=== PATIENT | female | born 1935 | race Two or more races ===

== ENCOUNTER → 2017-11-10 | Outpatient (CLI) | payer MEDICARE, MEDICAID ==
[~2017-11-10] MED LIST: AMLO5TAB66 PO; ASPI81TA39 PO; ATEN50TA PO; CALC250T PO; CLON.3 PO; GLIP10 PO; LEVO100 PO; LEVO500 PO; METF10004 PO; METR500 PO; OMEP20TA25 PO; SIMV20TA6 PO; ZOLP5TAB8 PO
== END | disposition home or self-care (01) ==
LOC: RADPV 09:07
PROVIDERS: ATTEND Internal Medicine
DX: I08.1 Rheumatic disorders of both mitral and tricuspid valves (principal); I10 Essential (primary) hypertension; E11.65 Type 2 diabetes mellitus with hyperglycemia
CPT/HCPCS: 93306

== ENCOUNTER 2019-01-05 20:17 | Inpatient (IN) | payer MEDICARE, MEDICAID ==
[~2019-01-05] VITALS: Ht 160 cm; Wt 73.0 kg
[~2019-01-05 20:17] MED LIST changes: +METF-446 PO; -METF10004 PO
[2019-01-05] MEDS ORDERED: LABE100T8 PO (20:49)
[2019-01-05] MEDS ORDERED: OS500 PO (20:49)
[2019-01-05] MEDS ORDERED: ATOR20TA86 PO (20:49)
[2019-01-05] MEDS ORDERED: AMIO200T44 PO (20:49)
[2019-01-05] MEDS ORDERED: SODIUM CHLORIDE 0.9% 1,000 ML IV ONE (21:15)
[2019-01-05 21:24] LABS: BASOPHILS % (AUTO) 0.3 % (0.0-2.0); EOSINOPHILS % (AUTO) 0.7 % (1.0-6.0); HEMATOCRIT 35.5 % (36-46); HEMOGLOBIN 11.5 g/dL (12.0-16.0); LYMPHOCYTES # (AUTO) 0.7 K/uL (1.0-4.8); LYMPHOCYTES % (AUTO) 9.1 % (22.0-44.0); MEAN CORPUSCULAR HEMOGLOBIN 30.4 pg (26.0-34.0); MEAN CORPUSCULAR HGB CONC 32.5 G/dL (31.0-37.0); MEAN CORPUSCULAR VOLUME 94 fL (80-100); MONOCYTES # (AUTO) 0.6 K/uL (0.1-1.0); MONOCYTES % (AUTO) 7.5 % (2.0-9.0); NEUTROPHILS # (AUTO) 6.7 K/uL (1.8-7.7); NEUTROPHILS % (AUTO) 82.4 % (40.0-70.0); PLATELET COUNT (AUTO) 221 K/uL (150-450); RED BLOOD CELL COUNT(AUTO) 3.79 MIL/uL (4.00-5.20); RED CELL DISTRIBUTION WIDTH 14.6 % (11.5-14.5)
[2019-01-05] MEDS ORDERED: HydrALAZINE HCL 20 MG/ML VIAL IVP ONE (21:30)
[2019-01-05 21:38] LABS: ANION GAP 12 mmol/L (8-16); CALCIUM, TOTAL 8.9 mg/dL (8.8-10.5); CARBON DIOXIDE 26 mmol/L (22-29); CHLORIDE 101 mmol/L (98-107); CREATININE 2.08 mg/dL (0.60-1.30); GLOMERULAR FILTR. RATE CALC 23 mL/min (>60); GLUCOSE,RANDOM 118 mg/dL (70-110); POTASSIUM 3.2 mmol/L (3.5-5.1); SODIUM SERUM 139 mmol/L (136-145); UREA NITROGEN, BLOOD 26 mg/dL (7-18)
[2019-01-05 21:39] LABS: PROTHROMBIN TIME 10.6 SEC (9.4-11.6)
[2019-01-05 21:53] LABS: ALANINE AMINOTRANSFERASE 20 U/L (12-78); ALBUMIN 4.3 g/dL (3.4-5.0); ALKALINE PHOSPHATASE 79 U/L (46-116); ASPARTATE AMINOTRANSFERASE 22 U/L (15-37); BILIRUBIN,TOTAL 0.6 mg/dL (0.1-1.0); TOTAL PROTEIN, SERUM 8.4 g/dL (6.4-8.2)
[2019-01-05] MEDS ORDERED: CloNIDine HCL 0.2 MG TABLET PO ONE (22:30)
[2019-01-05 22:38] LABS: APPEARANCE,URINE CLEAR (CLEAR); BILIRUBIN,URINE NEGATIVE (NEGATIVE); GLUCOSE, URINE (UA) 250 mg/dL (NEGATIVE); KETONES,URINE NEGATIVE (NEGATIVE); LEUKOCYTE ESTERASE ,URINE NEGATIVE (NEGATIVE); NITRATE,URINE NEGATIVE (NEGATIVE); OCCULT BLOOD,URINE NEGATIVE (NEGATIVE); PH,URINE 6.5 (5.0-8.0); PROTEIN,URINE SEE CONFIRM (NEGATIVE); UROBILINOGEN,URINE 0.2 mg/dL (<=1.0)
[2019-01-05 22:40] LABS: GLUCOSE,POINT OF CARE 100 MG/DL (70-110)
[2019-01-05 22:43] LABS: AMPHET/METH SCREEN,URINE NEGATIVE (NEGATIVE); BARBITURATE SCREEN, URINE NEGATIVE (NEGATIVE); BENZODIAZEPINES SCREEN,URINE NEGATIVE (NEGATIVE); CANNABINOID SCREEN,URINE NEGATIVE (NEGATIVE); COCAINE SCREEN,URINE NEGATIVE (NEGATIVE); METHADONE SCREEN, URINE NEGATIVE (NEGATIVE); OPIATE SCREEN,URINE NEGATIVE (NEGATIVE)
[2019-01-05 22:44] LABS: PHENCYCLIDINE SCREEN,URINE NEGATIVE (NEGATIVE)
[2019-01-05 22:53] LABS: SULFOSALICYLIC ACID,URINE 2+ (Negative)
[2019-01-05 22:54] LABS: BACTERIA,URINE None Seen /HPF (None Seen); RBC,URINE 0-2 /HPF (0-2); SQUAMOUS EPITHELIAL CELL,UR Few /LPF (None Seen); WBC,URINE 0-2 /HPF (0-5)
[2019-01-05 23:10] LABS: GLUCOSE,POINT OF CARE 86 MG/DL (70-110)
[2019-01-05] MEDS ORDERED: POTASSIUM CHLORIDE 20 MEQ ER TABLET PO ONE (23:15)
[2019-01-05 23:55] LABS: GLUCOSE,POINT OF CARE 111 MG/DL (70-110)
[2019-01-06] VITALS (9 sets, daily range): BP systolic 142–189; BP diastolic 68–95
[2019-01-06 02:05] LABS: GLUCOSE,POINT OF CARE 168 MG/DL (70-110)
[2019-01-06] MEDS: HydrALAZINE HCL 20 MG/ML VIAL IVP PRN ×2 (02:42→11:42)
[2019-01-06 05:25] LABS: GLUCOSE,POINT OF CARE 177 MG/DL (70-110)
[2019-01-06 05:25] LABS: GLUCOSE,POINT OF CARE 98 MG/DL (70-110)
[2019-01-06] MEDS ORDERED: DEXTROSE 10%-WATER 1,000 ML IV PRN (06:33)
[2019-01-06] MEDS ORDERED: ACETAMINOPHEN 325 MG TABLET PO PRN (06:45)
[2019-01-06] MEDS ORDERED: DEXTROSE 50%-WATER 25 GM/50 ML SYRINGE IVP PRN ×2 (06:45→07:00)
[2019-01-06] MEDS ORDERED: 0.9% SODIUM CHLORIDE 10 ML SYRINGE IVP PRN (06:45)
[2019-01-06] MEDS ORDERED: ZOLPIDEM TARTRATE 5 MG TABLET PO PRN (06:45)
[2019-01-06] MEDS ORDERED: ONDANSETRON HCL 4 MG/2 ML VIAL IVP PRN (06:45)
[2019-01-06] MEDS: LEVOTHYROXINE SODIUM 100 MCG TABLET PO SCH (06:53)
[2019-01-06 07:25] LABS: GLUCOSE,POINT OF CARE 79 MG/DL (70-110)
[2019-01-06 07:26] LABS: CALCIUM, TOTAL 8.2 mg/dL (8.8-10.5); CREATININE 1.86 mg/dL (0.60-1.30); POTASSIUM 3.3 mmol/L (3.5-5.1)
[2019-01-06] MEDS: DOCUSATE SODIUM 100 MG CAPSULE PO SCH ×2 (08:12→20:23)
[2019-01-06] MEDS: AMIODARONE HCL 200 MG TABLET PO SCH (08:12)
[2019-01-06] MEDS: PANTOPRAZOLE SODIUM 40 MG DR TABLET PO SCH (08:12)
[2019-01-06 08:18] LABS: MAGNESIUM 1.6 mg/dL (1.80-2.40)
[2019-01-06] MEDS ORDERED: LABETALOL HCL 100 MG TABLET PO SCH (09:00)
[2019-01-06 10:26] LABS: GLUCOSE,POINT OF CARE 106 MG/DL (70-110)
[2019-01-06] MEDS: CALCIUM OYSTER SHELL 500 MG TABLET PO SCH (10:37)
[2019-01-06] MEDS: LABETALOL HCL 200 MG TABLET PO SCH ×2 (10:37→20:23)
[2019-01-06] MEDS ORDERED: POTASSIUM CHLORIDE 20 MEQ ER TABLET PO PRN ×2 (12:30)
[2019-01-06 13:35] LABS: GLUCOSE,POINT OF CARE 88 MG/DL (70-110)
[2019-01-06] MEDS: MAGNESIUM OXIDE 400 MG TABLET PO PRN (13:36)
[2019-01-06] MEDS: ATORVASTATIN CALCIUM 20 MG TABLET PO SCH (20:23)
[2019-01-06] MEDS: INSULIN LISPRO 100 UNITS/ML SQ PRN (20:24)
[2019-01-07] VITALS (7 sets, daily range): BP systolic 130–149; BP diastolic 62–76
[2019-01-07 06:19] LABS: BASOPHILS % (AUTO) 0.8 % (0.0-2.0); EOSINOPHILS % (AUTO) 1.8 % (1.0-6.0); HEMATOCRIT 30.2 % (36-46); LYMPHOCYTES # (AUTO) 1.7 K/uL (1.0-4.8); MEAN CORPUSCULAR HEMOGLOBIN 30.9 pg (26.0-34.0); MEAN CORPUSCULAR HGB CONC 33.2 G/dL (31.0-37.0); MEAN CORPUSCULAR VOLUME 93 fL (80-100); MONOCYTES # (AUTO) 0.7 K/uL (0.1-1.0); MONOCYTES % (AUTO) 12.2 % (2.0-9.0); NEUTROPHILS # (AUTO) 3.4 K/uL (1.8-7.7); NEUTROPHILS % (AUTO) 56.2 % (40.0-70.0); PLATELET COUNT (AUTO) 200 K/uL (150-450); RED BLOOD CELL COUNT(AUTO) 3.25 MIL/uL (4.00-5.20); RED CELL DISTRIBUTION WIDTH 14.5 % (11.5-14.5)
[2019-01-07] MEDS: LEVOTHYROXINE SODIUM 100 MCG TABLET PO SCH (06:22)
[2019-01-07 06:30] LABS: CALCIUM, TOTAL 8.3 mg/dL (8.8-10.5); CREATININE 2.34 mg/dL (0.60-1.30); MAGNESIUM 1.5 mg/dL (1.80-2.40); POTASSIUM 4.4 mmol/L (3.5-5.1)
[2019-01-07] MEDS: AMIODARONE HCL 200 MG TABLET PO SCH (08:31)
[2019-01-07] MEDS: PANTOPRAZOLE SODIUM 40 MG DR TABLET PO SCH (08:31)
[2019-01-07] MEDS: CALCIUM OYSTER SHELL 500 MG TABLET PO SCH (08:31)
[2019-01-07] MEDS: LABETALOL HCL 200 MG TABLET PO SCH ×2 (08:31→20:11)
[2019-01-07] MEDS: DOCUSATE SODIUM 100 MG CAPSULE PO SCH ×2 (08:31→20:11)
[2019-01-07] MEDS ORDERED: SODIUM CHLORIDE 0.9% 500 ML IV ONE (13:00)
[2019-01-07] MEDS: ATORVASTATIN CALCIUM 20 MG TABLET PO SCH (20:11)
[2019-01-07] MEDS: MAGNESIUM OXIDE 400 MG TABLET PO PRN ×2 (20:11→23:37)
[2019-01-07] MEDS: INSULIN LISPRO 100 UNITS/ML SQ PRN (20:12)
[2019-01-08] VITALS (7 sets, daily range): BP systolic 145–179; BP diastolic 69–79
[2019-01-08] MEDS: MAGNESIUM OXIDE 400 MG TABLET PO PRN ×3 (04:41→20:25)
[2019-01-08] MEDS: LEVOTHYROXINE SODIUM 100 MCG TABLET PO SCH (06:18)
[2019-01-08] MEDS: HydrALAZINE HCL 20 MG/ML VIAL IVP PRN (06:18)
[2019-01-08] MEDS: INSULIN LISPRO 100 UNITS/ML SQ PRN (06:30)
[2019-01-08 06:46] LABS: BASOPHILS % (AUTO) 0.6 % (0.0-2.0); EOSINOPHILS % (AUTO) 3.2 % (1.0-6.0); HEMATOCRIT 29.7 % (36-46); HEMOGLOBIN 9.8 g/dL (12.0-16.0); LYMPHOCYTES # (AUTO) 1.5 K/uL (1.0-4.8); LYMPHOCYTES % (AUTO) 26.6 % (22.0-44.0); MEAN CORPUSCULAR HEMOGLOBIN 30.8 pg (26.0-34.0); MEAN CORPUSCULAR VOLUME 93 fL (80-100); MONOCYTES # (AUTO) 0.7 K/uL (0.1-1.0); MONOCYTES % (AUTO) 11.5 % (2.0-9.0); NEUTROPHILS # (AUTO) 3.3 K/uL (1.8-7.7); NEUTROPHILS % (AUTO) 58.1 % (40.0-70.0); PLATELET COUNT (AUTO) 180 K/uL (150-450); RED BLOOD CELL COUNT(AUTO) 3.18 MIL/uL (4.00-5.20); RED CELL DISTRIBUTION WIDTH 14.7 % (11.5-14.5)
[2019-01-08 06:54] LABS: CALCIUM, TOTAL 8.6 mg/dL (8.8-10.5); CREATININE 2.12 mg/dL (0.60-1.30); MAGNESIUM 1.7 mg/dL (1.80-2.40); POTASSIUM 4.4 mmol/L (3.5-5.1)
[2019-01-08] MEDS: AMIODARONE HCL 200 MG TABLET PO SCH (08:55)
[2019-01-08] MEDS: CALCIUM OYSTER SHELL 500 MG TABLET PO SCH (08:55)
[2019-01-08] MEDS: PANTOPRAZOLE SODIUM 40 MG DR TABLET PO SCH (08:55)
[2019-01-08] MEDS: DOCUSATE SODIUM 100 MG CAPSULE PO SCH ×3 (08:55→20:25)
[2019-01-08] MEDS: LABETALOL HCL 200 MG TABLET PO SCH ×3 (08:55→20:26)
[2019-01-08 11:35] LABS: CREATININE,URINE RANDOM 50.7 mg/dL (30.0-125.0)
[2019-01-08 12:47] LABS: SODIUM,URINE RANDOM 32 mmol/l (20-110)
[2019-01-08] MEDS ORDERED: SODIUM CHLORIDE 0.9% 500 ML IV ONE ×2 (12:53→13:15)
[2019-01-08] MEDS: AmLODIPine BESYLATE 5 MG TABLET PO SCH ×2 (13:03→20:25)
[2019-01-08 13:19] LABS: APPEARANCE,URINE CLEAR (CLEAR); BILIRUBIN,URINE NEGATIVE (NEGATIVE); GLUCOSE, URINE (UA) 250 mg/dL (NEGATIVE); KETONES,URINE NEGATIVE (NEGATIVE); LEUKOCYTE ESTERASE ,URINE NEGATIVE (NEGATIVE); NITRATE,URINE NEGATIVE (NEGATIVE); OCCULT BLOOD,URINE NEGATIVE (NEGATIVE); PROTEIN,URINE NEGATIVE (NEGATIVE); UROBILINOGEN,URINE 0.2 mg/dL (<=1.0)
[2019-01-08 13:25] LABS: BACTERIA,URINE None Seen /HPF (None Seen); RBC,URINE None Seen /HPF (0-2); WBC,URINE 0-2 /HPF (0-5)
[2019-01-08 13:26] LABS: SQUAMOUS EPITHELIAL CELL,UR Few /LPF (None Seen)
[2019-01-08] MEDS: CloNIDine HCL 0.1 MG TABLET PO SCH ×2 (16:38→20:25)
[2019-01-08] MEDS: ATORVASTATIN CALCIUM 20 MG TABLET PO SCH (20:25)
[2019-01-09] MEDS: LEVOTHYROXINE SODIUM 100 MCG TABLET PO SCH (05:11)
[2019-01-09] MEDS: MAGNESIUM OXIDE 400 MG TABLET PO PRN (05:11)
[2019-01-09 05:42] LABS: GLUCOMETER DEV NAME(LOC) 4E.2; GLUCOSE,POINT OF CARE 267 MG/DL (70-110)
[2019-01-09 05:42] LABS: GLUCOMETER DEV NAME(LOC) 4E.2; GLUCOSE,POINT OF CARE 57 MG/DL (70-110)
[2019-01-09 05:42] LABS: GLUCOMETER DEV NAME(LOC) 4E.2; GLUCOSE,POINT OF CARE 97 MG/DL (70-110)
[2019-01-09 05:42] LABS: GLUCOMETER DEV NAME(LOC) 4E.2; GLUCOSE,POINT OF CARE 256 MG/DL (70-110)
[2019-01-09 05:43] LABS: GLUCOMETER DEV NAME(LOC) 4E.2; GLUCOSE,POINT OF CARE 139 MG/DL (70-110)
[2019-01-09 05:43] LABS: GLUCOMETER DEV NAME(LOC) 4E.2; GLUCOSE,POINT OF CARE 226 MG/DL (70-110)
[2019-01-09 05:43] LABS: GLUCOMETER DEV NAME(LOC) 4E.2; GLUCOSE,POINT OF CARE 106 MG/DL (70-110)
[2019-01-09 05:43] LABS: GLUCOMETER DEV NAME(LOC) 4E.2; GLUCOSE,POINT OF CARE 203 MG/DL (70-110)
[2019-01-09 05:43] LABS: GLUCOMETER DEV NAME(LOC) 4E.2; GLUCOSE,POINT OF CARE 172 MG/DL (70-110)
[2019-01-09 05:43] LABS: GLUCOMETER DEV NAME(LOC) 4E.2; GLUCOSE,POINT OF CARE 146 MG/DL (70-110)
[2019-01-09 05:43] LABS: GLUCOMETER DEV NAME(LOC) 4E.2; GLUCOSE,POINT OF CARE 139 MG/DL (70-110)
[2019-01-09 06:21] LABS: GLUCOMETER DEV NAME(LOC) 4E.2; GLUCOSE,POINT OF CARE 126 MG/DL (70-110)
[2019-01-09 06:39] LABS: BASOPHILS % (AUTO) 0.6 % (0.0-2.0); HEMATOCRIT 28.5 % (36-46); HEMOGLOBIN 9.5 g/dL (12.0-16.0); LYMPHOCYTES # (AUTO) 1.5 K/uL (1.0-4.8); LYMPHOCYTES % (AUTO) 27.1 % (22.0-44.0); MEAN CORPUSCULAR HEMOGLOBIN 31.1 pg (26.0-34.0); MEAN CORPUSCULAR HGB CONC 33.4 G/dL (31.0-37.0); MEAN CORPUSCULAR VOLUME 93 fL (80-100); MONOCYTES # (AUTO) 0.5 K/uL (0.1-1.0); MONOCYTES % (AUTO) 9.5 % (2.0-9.0); NEUTROPHILS # (AUTO) 3.4 K/uL (1.8-7.7); NEUTROPHILS % (AUTO) 58.8 % (40.0-70.0); PLATELET COUNT (AUTO) 192 K/uL (150-450); RED BLOOD CELL COUNT(AUTO) 3.06 MIL/uL (4.00-5.20); RED CELL DISTRIBUTION WIDTH 14.5 % (11.5-14.5)
[2019-01-09 07:01] LABS: CALCIUM, TOTAL 8.7 mg/dL (8.8-10.5); CREATININE 1.55 mg/dL (0.60-1.30); MAGNESIUM 1.9 mg/dL (1.80-2.40); POTASSIUM 4.4 mmol/L (3.5-5.1)
[2019-01-09 07:38] VITALS: BP 140/59
[2019-01-09 09:21] VITALS: BP 160/69
[2019-01-09] MEDS: AmLODIPine BESYLATE 5 MG TABLET PO SCH (09:23)
[2019-01-09] MEDS: AMIODARONE HCL 200 MG TABLET PO SCH (09:23)
[2019-01-09] MEDS: DOCUSATE SODIUM 100 MG CAPSULE PO SCH (09:23)
[2019-01-09] MEDS: LABETALOL HCL 200 MG TABLET PO SCH (09:23)
[2019-01-09] MEDS: PANTOPRAZOLE SODIUM 40 MG DR TABLET PO SCH (09:23)
[2019-01-09] MEDS: CALCIUM OYSTER SHELL 500 MG TABLET PO SCH (09:23)
[2019-01-09] MEDS: CloNIDine HCL 0.1 MG TABLET PO SCH (09:23)
[2019-01-09] MEDS ORDERED: AMLO10TA7 PO (10:29)
[2019-01-09 11:06] VITALS: BP 163/75
[2019-01-09] MEDS ORDERED: FERROUS SULFATE 325 MG EC TABLET PO SCH (17:30)
[2019-01-10 14:38] LABS: ALBUMIN URINE (ELP) 56.1 %
== END 2019-01-09 11:35 | disposition home or self-care (01) | DRG 637 ==
LOC: EMS 20:17 → ICU 01-06 00:01 → 4E 01-06 15:15
PROVIDERS: ADMIT Internal Medicine; ATTEND Internal Medicine
DX: E11.649 Type 2 diabetes mellitus with hypoglycemia without coma (principal); G93.41 Metabolic encephalopathy; N17.9 Acute kidney failure, unspecified; I10 Essential (primary) hypertension; E78.5 Hyperlipidemia, unspecified; E11.22 Type 2 diabetes mellitus with diabetic chronic kidney disease; N18.3 Chronic kidney disease, stage 3 (moderate); I12.9 Hypertensive chronic kidney disease with stage 1 through stage 4 chronic kidney disease, or unspecified chronic kidney disease; E89.0 Postprocedural hypothyroidism; Z83.3 Family history of diabetes mellitus
CPT/HCPCS: 76770; 82570; 82784; 82948; 83735; 84132; 84155; 84156; 84165; 84166; 84300; 84443; 86334; 87081; 93005; 96374; G0378; G0480; J0360; J7030; J7040

== ENCOUNTER 2022-11-24 10:50 | Inpatient (IN) | payer MEDICARE, MEDICAID ==
[~2022-11-24] VITALS: Ht 152.4 cm; Wt 72.4 kg
[~2022-11-24 10:50] MED LIST changes: +AMIO200T68 PO; +AMLO-258 PO; -AMLO5TAB66 PO; -ASPI81TA39 PO; -ATEN50TA PO; +ATOR20TA PO; -CALC250T PO; -CLON.3 PO; +CLON0.3T PO; -GLIP10 PO; +LABE100T51 PO; -LEVO500 PO; -METF-446 PO; -METR500 PO; -OMEP20TA25 PO; +OS500 PO; -SIMV20TA6 PO; -ZOLP5TAB8 PO
[2022-11-24 11:21] LABS: EOSINOPHILS % (AUTO) 2.1 % (1.0-6.0); HEMATOCRIT 37.1 % (36-46); HEMOGLOBIN 12.2 g/dL (12.0-16.0); LYMPHOCYTES # (AUTO) 1.1 K/uL (1.0-4.8); LYMPHOCYTES % (AUTO) 16.4 % (22.0-44.0); MEAN CORPUSCULAR HEMOGLOBIN 29.5 pg (26.0-34.0); MEAN CORPUSCULAR HGB CONC 32.8 G/dL (31.0-37.0); MEAN CORPUSCULAR VOLUME 90 fL (80-100); MONOCYTES # (AUTO) 0.5 K/uL (0.1-1.0); NEUTROPHILS # (AUTO) 4.7 K/uL (1.8-7.7); NEUTROPHILS % (AUTO) 72.5 % (40.0-70.0); PLATELET COUNT (AUTO) 152 K/uL (150-450); RED BLOOD CELL COUNT(AUTO) 4.12 MIL/uL (4.00-5.20); RED CELL DISTRIBUTION WIDTH 16.4 % (11.5-14.5)
[2022-11-24 11:54] LABS: INR 1.2 (0.9-1.1); PROTHROMBIN TIME 12.5 SEC (9.4-11.6)
[2022-11-24] MEDS ORDERED: ONDANSETRON HCL 4 MG/2 ML VIAL IVP PRN (12:15)
[2022-11-24] MEDS ORDERED: ACETAMINOPHEN 325 MG TABLET PO PRN (12:15)
[2022-11-24] MEDS ORDERED: INSULIN LISPRO 100 UNITS/ML SQ PRN (12:15)
[2022-11-24] MEDS ORDERED: DEXTROSE 50%-WATER 25 GM/50 ML SYRINGE IVP PRN (12:15)
[2022-11-24] MEDS ORDERED: BISACODYL 10 MG RECTAL RECTAL SUPPOSITORY PR PRN (12:15)
[2022-11-24 12:18] LABS: COVID AG,FIA SOURCE NASOPHARYNGEAL
[2022-11-24] MEDS ORDERED: CLON1PAT13 TP (12:18)
[2022-11-24] MEDS ORDERED: GLIP5TAB11 PO (12:18)
[2022-11-24] MEDS ORDERED: MINO2.5 PO (12:18)
[2022-11-24] MEDS ORDERED: LOSA100T59 PO (12:18)
[2022-11-24] MEDS ORDERED: ESCI5TAB16 PO (12:18)
[2022-11-24] MEDS ORDERED: LEVO137T2 PO (12:18)
[2022-11-24 12:19] LABS: CALCIUM, TOTAL 8.1 mg/dL (8.8-10.5); CREATININE 1.77 mg/dL (0.60-1.30); POTASSIUM 4.5 mmol/L (3.5-5.1)
[2022-11-24] MEDS ORDERED: LABE200T83 PO (12:19)
[2022-11-24] MEDS ORDERED: EMPA10TA3 PO (12:19)
[2022-11-24 12:36] LABS: ALBUMIN 3.8 g/dL (3.4-5.0); BILIRUBIN,TOTAL 1.2 mg/dL (0.1-1.0); TOTAL PROTEIN, SERUM 7.5 g/dL (6.4-8.2)
[2022-11-24] MEDS ORDERED: CefTRIAXone 1 GM/DEXTROSE 50 ML IV ONE (12:45)
[2022-11-24] MEDS ORDERED: AZITHROMYCIN 500 MG/NS 250 ML IV ONE (12:45)
[2022-11-24 12:50] LABS: INFLUENZA TYPE A NEGATIVE FOR TYPE A (NEGATIVE); INFLUENZA TYPE B NEGATIVE FOR TYPE B (NEGATIVE)
[2022-11-24] MEDS ORDERED: AmLODIPine BESYLATE 10 MG TABLET PO ONE (13:00)
[2022-11-24 13:06] LABS: THYROID STIMULATING HORMONE 5.32 uIU/mL (0.36-3.74)
[2022-11-24] MEDS: BUMETANIDE 0.25 MG/ML 4 ML VIAL IVP SCH ×2 (13:25→20:26)
[2022-11-24] MEDS: LOSARTAN POTASSIUM 50 MG TABLET PO SCH ×2 (13:26→20:44)
[2022-11-24 15:20] LABS: APPEARANCE,URINE CLEAR (CLEAR); BILIRUBIN,URINE NEGATIVE (NEGATIVE); GLUCOSE, URINE (UA) >=1000 mg/dL (NEGATIVE); KETONES,URINE NEGATIVE (NEGATIVE); LEUKOCYTE ESTERASE ,URINE NEGATIVE (NEGATIVE); NITRATE,URINE NEGATIVE (NEGATIVE); OCCULT BLOOD,URINE NEGATIVE (NEGATIVE); PH,URINE 5.5 (5.0-8.0); PROTEIN,URINE 100-200,SEE CONFIRM mg/dL (NEGATIVE); SPECIFIC GRAVITIY, URINE 1.006 (1.003-1.030); UROBILINOGEN,URINE <=1.0 mg/dL (<=1.0)
[2022-11-24 15:35] LABS: BACTERIA,URINE Rare /HPF (None Seen); RBC,URINE 0-2 /HPF (0-2); SQUAMOUS EPITHELIAL CELL,UR Few /LPF (None Seen); SULFOSALICYLIC ACID,URINE 2+ (Negative); WBC,URINE 0-2 /HPF (0-5)
[2022-11-24 18:35] VITALS: BP 183/95; PULSE 64; RESP 22; TEMP 98.4
[2022-11-24] MEDS: OxyCODONE HCL/ACETAMINOPHEN 5-325 MG TABLET PO PRN (18:38)
[2022-11-24] MEDS: CloNIDine HCL 0.1 MG TABLET PO PRN (18:38)
[2022-11-24 19:36] VITALS: BP 161/68; PULSE 69; RESP 20; TEMP 98.3
[2022-11-24] MEDS: DOCUSATE SODIUM 100 MG CAPSULE PO SCH (20:44)
[2022-11-24] MEDS: APIXABAN 5 MG TABLET PO SCH (20:44)
[2022-11-24 23:59] VITALS: BP 170/83; PULSE 66; RESP 19; TEMP 97.8
[2022-11-25] VITALS (7 sets, daily range): BP systolic 161–190; BP diastolic 75–98; PULSE 53–67; RESP 18–20; TEMP 97.7–99
[2022-11-25] MEDS: CloNIDine HCL 0.1 MG TABLET PO PRN ×2 (02:26→15:35)
[2022-11-25 05:31] LABS: GLUCOMETER DEV NAME(LOC) 5S.1B; GLUCOSE,POINT OF CARE 121 MG/DL (70-110)
[2022-11-25] MEDS ORDERED: LOSARTAN POTASSIUM 50 MG TABLET PO ONE (05:45)
[2022-11-25] MEDS: BUMETANIDE 0.25 MG/ML 4 ML VIAL IVP SCH ×2 (07:56→20:49)
[2022-11-25] MEDS: LOSARTAN POTASSIUM 50 MG TABLET PO SCH ×2 (07:57→18:33)
[2022-11-25] MEDS: DOCUSATE SODIUM 100 MG CAPSULE PO SCH ×2 (07:57→20:50)
[2022-11-25] MEDS: FAMOTIDINE 20 MG TABLET PO SCH (07:57)
[2022-11-25] MEDS: METOPROLOL SUCCINATE 25 MG ER TABLET PO SCH (07:57)
[2022-11-25] MEDS: APIXABAN 5 MG TABLET PO SCH (07:57)
[2022-11-25] MEDS: ASPIRIN 81 MG CHEWABLE TABLET PO SCH (07:57)
[2022-11-25] MEDS: ATORVASTATIN CALCIUM 20 MG TABLET PO SCH (07:57)
[2022-11-25] MEDS: AmLODIPine BESYLATE 10 MG TABLET PO SCH (10:30)
[2022-11-25 11:27] LABS: GLUCOMETER DEV NAME(LOC) 5S.2C; GLUCOSE,POINT OF CARE 86 MG/DL (70-110)
[2022-11-25 11:27] LABS: GLUCOMETER DEV NAME(LOC) 5S.2C; GLUCOSE,POINT OF CARE 129 MG/DL (70-110)
[2022-11-25 17:52] LABS: GLUCOMETER DEV NAME(LOC) 5N.1C; GLUCOSE,POINT OF CARE 102 MG/DL (70-110)
[2022-11-25] MEDS: APIXABAN 2.5 MG TABLET PO SCH (20:50)
[2022-11-26] MEDS: CloNIDine HCL 0.1 MG TABLET PO PRN ×2 (00:25→16:43)
[2022-11-26 00:34] VITALS: BP 194/91; PULSE 61; RESP 20; TEMP 98.6
[2022-11-26 00:42] LABS: GLUCOMETER DEV NAME(LOC) 5N.2C; GLUCOSE,POINT OF CARE 130 MG/DL (70-110)
[2022-11-26 04:38] VITALS: BP 192/93; PULSE 59; RESP 20; TEMP 98.7
[2022-11-26] MEDS ORDERED: CloNIDine HCL 0.1 MG TABLET PO ONE (04:45)
[2022-11-26 06:07] LABS: BASOPHILS % (AUTO) 1.1 % (0.0-2.0); EOSINOPHILS % (AUTO) 6.4 % (1.0-6.0); HEMATOCRIT 35.1 % (36-46); HEMOGLOBIN 11.4 g/dL (12.0-16.0); LYMPHOCYTES # (AUTO) 1.3 K/uL (1.0-4.8); LYMPHOCYTES % (AUTO) 24.9 % (22.0-44.0); MEAN CORPUSCULAR HEMOGLOBIN 28.9 pg (26.0-34.0); MEAN CORPUSCULAR HGB CONC 32.4 G/dL (31.0-37.0); MEAN CORPUSCULAR VOLUME 89 fL (80-100); MONOCYTES # (AUTO) 0.6 K/uL (0.1-1.0); NEUTROPHILS # (AUTO) 2.9 K/uL (1.8-7.7); NEUTROPHILS % (AUTO) 56.6 % (40.0-70.0); PLATELET COUNT (AUTO) 151 K/uL (150-450); RED BLOOD CELL COUNT(AUTO) 3.95 MIL/uL (4.00-5.20); RED CELL DISTRIBUTION WIDTH 16.2 % (11.5-14.5)
[2022-11-26 06:26] LABS: ALBUMIN 3.4 g/dL (3.4-5.0); BILIRUBIN,TOTAL 1.1 mg/dL (0.1-1.0); CALCIUM, TOTAL 7.8 mg/dL (8.8-10.5); CREATININE 1.48 mg/dL (0.60-1.30); POTASSIUM 3.3 mmol/L (3.5-5.1); TOTAL PROTEIN, SERUM 6.9 g/dL (6.4-8.2)
[2022-11-26 08:00] VITALS: BP 190/96; PULSE 64; RESP 18; TEMP 97.6
[2022-11-26] MEDS: LOSARTAN POTASSIUM 50 MG TABLET PO SCH ×2 (08:38→21:49)
[2022-11-26] MEDS: ASPIRIN 81 MG CHEWABLE TABLET PO SCH (08:38)
[2022-11-26] MEDS: BUMETANIDE 0.25 MG/ML 4 ML VIAL IVP SCH ×2 (08:38→21:49)
[2022-11-26] MEDS: AmLODIPine BESYLATE 10 MG TABLET PO SCH (08:38)
[2022-11-26] MEDS: ATORVASTATIN CALCIUM 20 MG TABLET PO SCH (08:39)
[2022-11-26] MEDS: DOCUSATE SODIUM 100 MG CAPSULE PO SCH ×2 (08:39→21:00)
[2022-11-26] MEDS: FAMOTIDINE 20 MG TABLET PO SCH (08:39)
[2022-11-26] MEDS: APIXABAN 2.5 MG TABLET PO SCH ×2 (08:39→21:49)
[2022-11-26] MEDS: METOPROLOL SUCCINATE 25 MG ER TABLET PO SCH (08:39)
[2022-11-26] MEDS ORDERED: LOSARTAN POTASSIUM 50 MG TABLET PO SCH (09:00)
[2022-11-26] MEDS: CloNIDine HCL 0.1 MG TABLET PO SCH ×2 (11:17→21:53)
[2022-11-26 11:31] LABS: GLUCOMETER DEV NAME(LOC) 5S.2C; GLUCOSE,POINT OF CARE 112 MG/DL (70-110)
[2022-11-26 12:06] LABS: GLUCOMETER DEV NAME(LOC) 5S.2C; GLUCOSE,POINT OF CARE 130 MG/DL (70-110)
[2022-11-26 12:16] VITALS: BP 142/76; PULSE 54; RESP 18; TEMP 97.9
[2022-11-26 16:00] VITALS: BP 154/92; PULSE 62; RESP 16; TEMP 97.6
[2022-11-26 20:02] VITALS: BP 181/74; PULSE 59; RESP 19; TEMP 98.1
[2022-11-26 20:11] LABS: GLUCOMETER DEV NAME(LOC) 5N.1C; GLUCOSE,POINT OF CARE 134 MG/DL (70-110)
[2022-11-27 00:11] VITALS: BP 164/69; PULSE 52; RESP 17; TEMP 98.2
[2022-11-27 04:58] VITALS: BP 177/89; PULSE 58; RESP 19; TEMP 98.1
[2022-11-27] MEDS: CloNIDine HCL 0.1 MG TABLET PO PRN (05:19)
[2022-11-27 06:17] LABS: GLUCOMETER DEV NAME(LOC) 5S.2C; GLUCOSE,POINT OF CARE 149 MG/DL (70-110)
[2022-11-27 06:27] LABS: GLUCOMETER DEV NAME(LOC) 5S.2C; GLUCOSE,POINT OF CARE 131 MG/DL (70-110)
[2022-11-27 07:44] VITALS: BP 182/95; PULSE 64; RESP 18; TEMP 98.4
[2022-11-27] MEDS: ATORVASTATIN CALCIUM 20 MG TABLET PO SCH (08:15)
[2022-11-27] MEDS: APIXABAN 2.5 MG TABLET PO SCH ×2 (08:15→21:33)
[2022-11-27] MEDS: LOSARTAN POTASSIUM 50 MG TABLET PO SCH ×2 (08:15→21:33)
[2022-11-27] MEDS: ASPIRIN 81 MG CHEWABLE TABLET PO SCH (08:15)
[2022-11-27] MEDS: FAMOTIDINE 20 MG TABLET PO SCH (08:15)
[2022-11-27] MEDS: DOCUSATE SODIUM 100 MG CAPSULE PO SCH ×2 (08:15→21:00)
[2022-11-27] MEDS: METOPROLOL SUCCINATE 25 MG ER TABLET PO SCH (08:16)
[2022-11-27] MEDS: BUMETANIDE 0.25 MG/ML 4 ML VIAL IVP SCH ×2 (08:16→21:34)
[2022-11-27] MEDS: CloNIDine HCL 0.1 MG TABLET PO SCH ×2 (08:16→21:33)
[2022-11-27] MEDS: AmLODIPine BESYLATE 10 MG TABLET PO SCH (08:16)
[2022-11-27 11:10] VITALS: BP 161/77; PULSE 60; RESP 18; TEMP 98.2
[2022-11-27] MEDS ORDERED: AMLO-258 PO (12:53)
[2022-11-27] MEDS: HydrALAZINE HCL 50 MG TABLET PO SCH ×2 (12:53→23:33)
[2022-11-27 15:54] VITALS: BP 153/79; PULSE 60; RESP 18; TEMP 98.3
[2022-11-27 17:07] LABS: GLUCOMETER DEV NAME(LOC) 5S.1B; GLUCOSE,POINT OF CARE 156 MG/DL (70-110)
[2022-11-27 20:01] LABS: GLUCOMETER DEV NAME(LOC) 5N.1C; GLUCOSE,POINT OF CARE 95 MG/DL (70-110)
[2022-11-27 20:08] VITALS: BP 150/74; PULSE 51; RESP 19; TEMP 98
[2022-11-27 23:56] LABS: GLUCOMETER DEV NAME(LOC) 5S.2C; GLUCOSE,POINT OF CARE 147 MG/DL (70-110)
[2022-11-28 00:14] VITALS: BP 144/79; PULSE 56; RESP 19; TEMP 98.1
[2022-11-28 05:07] VITALS: BP 161/64; PULSE 58; RESP 18; TEMP 97.8
[2022-11-28 06:47] LABS: GLUCOMETER DEV NAME(LOC) 5S.2C; GLUCOSE,POINT OF CARE 135 MG/DL (70-110)
[2022-11-28 07:01] LABS: BASOPHILS % (AUTO) 0.9 % (0.0-2.0); EOSINOPHILS % (AUTO) 6.9 % (1.0-6.0); HEMATOCRIT 39.3 % (36-46); HEMOGLOBIN 12.8 g/dL (12.0-16.0); LYMPHOCYTES # (AUTO) 1.5 K/uL (1.0-4.8); LYMPHOCYTES % (AUTO) 25.9 % (22.0-44.0); MEAN CORPUSCULAR HEMOGLOBIN 29.1 pg (26.0-34.0); MEAN CORPUSCULAR HGB CONC 32.7 G/dL (31.0-37.0); MEAN CORPUSCULAR VOLUME 89 fL (80-100); MONOCYTES # (AUTO) 0.7 K/uL (0.1-1.0); MONOCYTES % (AUTO) 11.4 % (2.0-9.0); NEUTROPHILS # (AUTO) 3.1 K/uL (1.8-7.7); NEUTROPHILS % (AUTO) 54.9 % (40.0-70.0); PLATELET COUNT (AUTO) 174 K/uL (150-450); RED BLOOD CELL COUNT(AUTO) 4.41 MIL/uL (4.00-5.20); RED CELL DISTRIBUTION WIDTH 16.2 % (11.5-14.5)
[2022-11-28 07:32] LABS: ALBUMIN 3.4 g/dL (3.4-5.0); BILIRUBIN,TOTAL 1.1 mg/dL (0.1-1.0); CALCIUM, TOTAL 8.3 mg/dL (8.8-10.5); CREATININE 1.34 mg/dL (0.60-1.30); TOTAL PROTEIN, SERUM 7.1 g/dL (6.4-8.2)
[2022-11-28 07:46] VITALS: BP 157/77; PULSE 60; RESP 18; TEMP 97.7
[2022-11-28] MEDS: LOSARTAN POTASSIUM 50 MG TABLET PO SCH (08:12)
[2022-11-28] MEDS: OxyCODONE HCL/ACETAMINOPHEN 5-325 MG TABLET PO PRN ×3 (08:12→16:29)
[2022-11-28] MEDS: HydrALAZINE HCL 50 MG TABLET PO SCH (08:12)
[2022-11-28] MEDS: BUMETANIDE 0.25 MG/ML 4 ML VIAL IVP SCH (08:12)
[2022-11-28] MEDS: APIXABAN 2.5 MG TABLET PO SCH (08:12)
[2022-11-28] MEDS: AmLODIPine BESYLATE 10 MG TABLET PO SCH (08:13)
[2022-11-28] MEDS: CloNIDine HCL 0.1 MG TABLET PO SCH (08:13)
[2022-11-28] MEDS: METOPROLOL SUCCINATE 25 MG ER TABLET PO SCH (08:13)
[2022-11-28] MEDS: ASPIRIN 81 MG CHEWABLE TABLET PO SCH (08:13)
[2022-11-28] MEDS: ATORVASTATIN CALCIUM 20 MG TABLET PO SCH (08:13)
[2022-11-28] MEDS: FAMOTIDINE 20 MG TABLET PO SCH (08:13)
[2022-11-28] MEDS: DOCUSATE SODIUM 100 MG CAPSULE PO SCH (08:13)
[2022-11-28 11:08] VITALS: BP 141/79; PULSE 51; RESP 18; TEMP 98.3
[2022-11-28] MEDS ORDERED: POTASSIUM CHLORIDE 20 MEQ ER TABLET PO ONE (12:15)
[2022-11-28 15:20] VITALS: BP 152/68; PULSE 58; RESP 17; TEMP 97.8
[2022-11-28] MEDS ORDERED: HydrALAZINE HCL 50 MG TABLET PO SCH (16:00)
[2022-11-28 17:48] LABS: GLUCOMETER DEV NAME(LOC) 5N.2C; GLUCOSE,POINT OF CARE 124 MG/DL (70-110)
== END 2022-11-28 17:00 | disposition home or self-care (01) | DRG 291 ==
LOC: EMS 10:52 → 5S 16:24
PROVIDERS: ADMIT Internal Medicine; ATTEND Internal Medicine
DX: I13.0 Hypertensive heart and chronic kidney disease with heart failure and stage 1 through stage 4 chronic kidney disease, or unspecified chronic kidney disease (principal); I50.23 Acute on chronic systolic (congestive) heart failure; I48.20 Chronic atrial fibrillation, unspecified; N18.4 Chronic kidney disease, stage 4 (severe); E11.22 Type 2 diabetes mellitus with diabetic chronic kidney disease; D63.8 Anemia in other chronic diseases classified elsewhere; E78.5 Hyperlipidemia, unspecified; E66.9 Obesity, unspecified; I07.1 Rheumatic tricuspid insufficiency; I25.10 Atherosclerotic heart disease of native coronary artery without angina pectoris; Z20.822 Contact with and (suspected) exposure to COVID-19; E89.0 Postprocedural hypothyroidism; Z79.4 Long term (current) use of insulin; Z79.84 Long term (current) use of oral hypoglycemic drugs; Z79.899 Other long term (current) drug therapy; Z68.31 Body mass index [BMI] 31.0-31.9, adult
CPT/HCPCS: 71045; 80053; 81001; 81002; 82550; 82962; 83880; 84443; 84484; 85025; 85610; 85730; 87804; 93005; 93306; 97163; 99285; G0378; J0456; J0696; J3490; 36415-L1; 36415-TC

== ENCOUNTER 2023-04-12 07:13 | Emergency (ER) | payer MEDICARE, MEDICAID ==
[~2023-04-12] VITALS: Ht 157.5 cm; Wt 68.2 kg
[~2023-04-12 07:13] MED LIST changes: -AMIO200T68 PO; -CLON0.3T PO; +CLON1PAT13 TP; +EMPA10TA3 PO; +ESCI5TAB16 PO; +GLIP5TAB15 PO; -LABE100T51 PO; +LABE200T83 PO; -LEVO100 PO; +LEVO137T2 PO; +LOSA100T59 PO; +MINO2.5 PO
[2023-04-12 07:24] VITALS: BP 167/97; PULSE 114; RESP 18; TEMP 98.3
[2023-04-12] MEDS ORDERED: FLUORESCEIN SODIUM 1 MG STRIP OD ONE (08:30)
== END 2023-04-12 09:09 | disposition home or self-care (01) ==
LOC: EMS 07:15
DX: H40.9 Unspecified glaucoma (principal); E11.65 Type 2 diabetes mellitus with hyperglycemia; R51.9 Headache, unspecified; I10 Essential (primary) hypertension; E05.90 Thyrotoxicosis, unspecified without thyrotoxic crisis or storm; Z98.890 Other specified postprocedural states
CPT/HCPCS: 82962; 99283

== ENCOUNTER 2024-01-19 20:16 | Inpatient (IN) | payer MEDICARE, MEDICAID ==
[~2024-01-19] VITALS: Ht 160 cm; Wt 67.2 kg
[~2024-01-19 20:16] MED LIST changes: +APIX2.5T PO; -ATOR20TA PO; +ATOR20TA65 PO; +CARV3 PO; -CLON1PAT13 TP; +FURO20 PO; -GLIP5TAB15 PO; +HYDR50TA37 PO; -LABE200T83 PO; +LOSA-382 PO; -LOSA100T59 PO
[2024-01-19 21:15] LABS: BASOPHILS % (AUTO) 0.2 % (0.0-2.0); EOSINOPHILS % (AUTO) 0.1 % (1.0-6.0); HEMOGLOBIN 12.2 g/dL (12.0-16.0); LYMPHOCYTES # (AUTO) 0.9 K/uL (1.0-4.8); MEAN CORPUSCULAR HEMOGLOBIN 30.9 pg (26.0-34.0); MEAN CORPUSCULAR HGB CONC 32.9 G/dL (31.0-37.0); MEAN CORPUSCULAR VOLUME 94 fL (80-100); MONOCYTES # (AUTO) 0.5 K/uL (0.1-1.0); MONOCYTES % (AUTO) 4.8 % (2.0-9.0); NEUTROPHILS # (AUTO) 9.7 K/uL (1.8-7.7); PLATELET COUNT (AUTO) 190 K/uL (150-450); RED BLOOD CELL COUNT(AUTO) 3.94 MIL/uL (4.00-5.20); RED CELL DISTRIBUTION WIDTH 14.3 % (11.5-14.5); WHITE BLOOD COUNT (AUTO) 11.2 K/uL (4.5-11.0)
[2024-01-19 21:18] LABS: NEUTROPHILS % (AUTO) 86.9 % (40.0-70.0)
[2024-01-19 21:28] LABS: CALCIUM, TOTAL 8.1 mg/dL (8.8-10.5); CREATININE 2.1 mg/dL (0.60-1.30); POTASSIUM 3.6 mmol/L (3.5-5.1)
[2024-01-19 21:32] LABS: PROTHROMBIN TIME 10.3 SEC (9.4-11.6)
[2024-01-19 21:34] LABS: ALBUMIN 3.4 g/dL (3.4-5.0); BILIRUBIN,TOTAL 0.4 mg/dL (0.1-1.0); TOTAL PROTEIN, SERUM 7.6 g/dL (6.4-8.2)
[2024-01-19 21:37] LABS: TROPONIN I-HIGH SENSITIVITY 497 ng/L (<51)
[2024-01-19] MEDS: HydrALAZINE HCL 20 MG/ML VIAL IVP ONE (21:43)
[2024-01-19] MEDS: CARVEDILOL 3.125 MG TABLET PO ONE (22:12)
[2024-01-19] MEDS ORDERED: ACETAMINOPHEN 325 MG TABLET PO PRN (22:45)
[2024-01-19] MEDS ORDERED: MORPHINE SULFATE 2 MG/ML SYRINGE IVP PRN (22:45)
[2024-01-19] MEDS ORDERED: ONDANSETRON HCL 4 MG/2 ML VIAL IVP PRN (22:45)
[2024-01-19] MEDS ORDERED: BISACODYL 10 MG RECTAL RECTAL SUPPOSITORY PR PRN (22:45)
[2024-01-19] MEDS ORDERED: MAGNESIUM HYDROXIDE SUSPENSION 30 ML UDCUP PO PRN (22:45)
[2024-01-19] MEDS ORDERED: HYDROCODONE/ACETAMINOPHEN 5-325 MG TABLET PO PRN (22:45)
[2024-01-19] MEDS ORDERED: ZOLPIDEM TARTRATE 5 MG TABLET PO PRN (22:45)
[2024-01-19 23:33] LABS: LACTIC ACID 1.3 mmol/L (0.4-2.0)
[2024-01-19] MEDS: FUROSEMIDE 20 MG/2 ML VIAL IVP SCH (23:40)
[2024-01-19 23:43] LABS: TROPONIN I-HIGH SENSITIVITY 662 ng/L (<51)
[2024-01-20] MEDS: MINOXIDIL 2.5 MG TABLET PO ONE (01:30)
[2024-01-20] MEDS: FUROSEMIDE 20 MG TABLET PO ONE (01:30)
[2024-01-20 05:35] LABS: CALCIUM, TOTAL 8.1 mg/dL (8.8-10.5); CREATININE 2.08 mg/dL (0.60-1.30); POTASSIUM 3.4 mmol/L (3.5-5.1)
[2024-01-20 05:37] LABS: BASOPHILS % (AUTO) 0.3 % (0.0-2.0); EOSINOPHILS % (AUTO) 0.9 % (1.0-6.0); HEMATOCRIT 34.4 % (36-46); HEMOGLOBIN 11.2 g/dL (12.0-16.0); LYMPHOCYTES # (AUTO) 1.3 K/uL (1.0-4.8); LYMPHOCYTES % (AUTO) 14.5 % (22.0-44.0); MEAN CORPUSCULAR HEMOGLOBIN 30.6 pg (26.0-34.0); MEAN CORPUSCULAR HGB CONC 32.7 G/dL (31.0-37.0); MEAN CORPUSCULAR VOLUME 94 fL (80-100); MONOCYTES # (AUTO) 0.7 K/uL (0.1-1.0); MONOCYTES % (AUTO) 8.1 % (2.0-9.0); NEUTROPHILS # (AUTO) 6.6 K/uL (1.8-7.7); NEUTROPHILS % (AUTO) 76.2 % (40.0-70.0); PLATELET COUNT (AUTO) 176 K/uL (150-450); RED BLOOD CELL COUNT(AUTO) 3.68 MIL/uL (4.00-5.20); RED CELL DISTRIBUTION WIDTH 14.7 % (11.5-14.5); WHITE BLOOD COUNT (AUTO) 8.7 K/uL (4.5-11.0)
[2024-01-20 05:56] LABS: TROPONIN I-HIGH SENSITIVITY 1021 ng/L (<51)
[2024-01-20] MEDS ORDERED: HEPARIN SODIUM,PORCINE 5,000 UNITS/ML VIAL IVP PRN ×2 (06:15)
[2024-01-20] MEDS ORDERED: HEPARIN SODIUM,PORCINE 5,000 UNITS/ML VIAL IVP ONE (06:15)
[2024-01-20] MEDS: HEPARIN SODIUM,PORCINE 5,000 UNITS/ML VIAL IVP ONE (06:43)
[2024-01-20] MEDS: HEPARIN SODIUM 25000 UNITS/D5W 250 ML IV PRN (06:54)
[2024-01-20] MEDS: LEVOTHYROXINE SODIUM 137 MCG TABLET PO SCH (07:00)
[2024-01-20 08:36] VITALS: BP 177/70; PULSE 55; RESP 18; TEMP 97.8; O2SAT 96
[2024-01-20] MEDS: LOSARTAN POTASSIUM 50 MG TABLET PO SCH (08:51)
[2024-01-20] MEDS: AmLODIPine BESYLATE 10 MG TABLET PO SCH (08:51)
[2024-01-20] MEDS: CARVEDILOL 3.125 MG TABLET PO SCH (08:51)
[2024-01-20] MEDS: PANTOPRAZOLE SODIUM 40 MG DR TABLET PO SCH (08:51)
[2024-01-20] MEDS: ASPIRIN 81 MG DR TABLET PO SCH (08:51)
[2024-01-20] MEDS: HydrALAZINE HCL 50 MG TABLET PO SCH (08:55)
[2024-01-20] MEDS: DOCUSATE SODIUM 100 MG CAPSULE PO SCH (08:56)
[2024-01-20] MEDS: MINOXIDIL 2.5 MG TABLET PO SCH (08:56)
[2024-01-20] MEDS ORDERED: APIXABAN 2.5 MG TABLET PO SCH (09:00)
[2024-01-20 11:30] VITALS: BP 108/49; PULSE 58; RESP 18; TEMP 98; O2SAT 95
[2024-01-20 16:38] VITALS: BP 122/55; PULSE 72; RESP 18; TEMP 98.1; O2SAT 96
[2024-01-20 20:06] VITALS: BP 117/67; PULSE 79; RESP 18; TEMP 98.2; O2SAT 97
[2024-01-20] MEDS: ATORVASTATIN CALCIUM 20 MG TABLET PO SCH (21:28)
[2024-01-21] VITALS (8 sets, daily range): BP systolic 100–142; BP diastolic 43–70; PULSE 63–84; RESP 16–18; TEMP 98–99.7; O2SAT 97–98
[2024-01-21 05:24] LABS: APPEARANCE,URINE CLEAR (CLEAR); BILIRUBIN,URINE NEGATIVE (NEGATIVE); COLOR,URINE LIGHT YELLOW (YELLOW); GLUCOSE, URINE (UA) 300-500 mg/dL (NEGATIVE); KETONES,URINE NEGATIVE (NEGATIVE); LEUKOCYTE ESTERASE ,URINE MODERATE (NEGATIVE); NITRATE,URINE NEGATIVE (NEGATIVE); OCCULT BLOOD,URINE NEGATIVE (NEGATIVE); PH,URINE 5.5 (5.0-8.0); PROTEIN,URINE 100-200,SEE CONFIRM mg/dL (NEGATIVE); SPECIFIC GRAVITIY, URINE 1.009 (1.003-1.030); UROBILINOGEN,URINE <=1.0 mg/dL (<=1.0)
[2024-01-21 05:31] LABS: BACTERIA,URINE None Seen /HPF (None Seen); RBC,URINE None Seen /HPF (0-2); SQUAMOUS EPITHELIAL CELL,UR Few /LPF (None Seen); SULFOSALICYLIC ACID,URINE 2+ (Negative)
[2024-01-21 06:58] LABS: BASOPHILS % (AUTO) 0.6 % (0.0-2.0); EOSINOPHILS % (AUTO) 0.9 % (1.0-6.0); HEMATOCRIT 31.9 % (36-46); HEMOGLOBIN 10.6 g/dL (12.0-16.0); LYMPHOCYTES # (AUTO) 1.6 K/uL (1.0-4.8); LYMPHOCYTES % (AUTO) 22.2 % (22.0-44.0); MEAN CORPUSCULAR HEMOGLOBIN 31.1 pg (26.0-34.0); MEAN CORPUSCULAR HGB CONC 33.3 G/dL (31.0-37.0); MEAN CORPUSCULAR VOLUME 93 fL (80-100); MONOCYTES # (AUTO) 0.8 K/uL (0.1-1.0); MONOCYTES % (AUTO) 10.3 % (2.0-9.0); NEUTROPHILS # (AUTO) 4.8 K/uL (1.8-7.7); PLATELET COUNT (AUTO) 161 K/uL (150-450); RED BLOOD CELL COUNT(AUTO) 3.42 MIL/uL (4.00-5.20); RED CELL DISTRIBUTION WIDTH 14.7 % (11.5-14.5); WHITE BLOOD COUNT (AUTO) 7.3 K/uL (4.5-11.0)
[2024-01-21 07:08] LABS: CALCIUM, TOTAL 7.7 mg/dL (8.8-10.5); CREATININE 2.6 mg/dL (0.60-1.30); POTASSIUM 3.4 mmol/L (3.5-5.1)
[2024-01-21 08:26] LABS: TROPONIN I-HIGH SENSITIVITY 348 ng/L (<51)
[2024-01-21] MEDS: APIXABAN 2.5 MG TABLET PO SCH (09:07)
[2024-01-21 12:03] LABS: % IRON SATURATION 21.9 % (22-44)
[2024-01-21] MEDS: SODIUM CHLORIDE 0.9% 250 ML IV ONE (15:34)
[2024-01-21] MEDS: HydrALAZINE HCL 25 MG TABLET PO SCH (16:00)
[2024-01-22 05:40] VITALS: BP 130/57; PULSE 75; RESP 17; TEMP 98.6; O2SAT 99
[2024-01-22 06:51] LABS: BASOPHILS % (AUTO) 0.6 % (0.0-2.0); EOSINOPHILS % (AUTO) 1.6 % (1.0-6.0); HEMATOCRIT 31.6 % (36-46); HEMOGLOBIN 10.5 g/dL (12.0-16.0); LYMPHOCYTES # (AUTO) 1.5 K/uL (1.0-4.8); LYMPHOCYTES % (AUTO) 20.6 % (22.0-44.0); MEAN CORPUSCULAR HEMOGLOBIN 31.3 pg (26.0-34.0); MEAN CORPUSCULAR HGB CONC 33.4 G/dL (31.0-37.0); MEAN CORPUSCULAR VOLUME 94 fL (80-100); MONOCYTES # (AUTO) 0.7 K/uL (0.1-1.0); NEUTROPHILS # (AUTO) 4.7 K/uL (1.8-7.7); NEUTROPHILS % (AUTO) 67.2 % (40.0-70.0); PLATELET COUNT (AUTO) 166 K/uL (150-450); RED BLOOD CELL COUNT(AUTO) 3.37 MIL/uL (4.00-5.20); RED CELL DISTRIBUTION WIDTH 14.5 % (11.5-14.5); WHITE BLOOD COUNT (AUTO) 7.1 K/uL (4.5-11.0)
[2024-01-22 06:57] LABS: CREATININE 2.58 mg/dL (0.60-1.30); MAGNESIUM 2.6 mg/dL (1.80-2.40); POTASSIUM 3.5 mmol/L (3.5-5.1)
[2024-01-22 08:56] VITALS: BP 120/48; PULSE 69; RESP 17; TEMP 97.8; O2SAT 97
[2024-01-22 13:03] VITALS: BP 131/56; PULSE 63; RESP 17; TEMP 98; O2SAT 98
[2024-01-22] MEDS ORDERED: HYDR25TA84 PO (13:43)
[2024-01-22] MEDS ORDERED: LOSA-381 PO (13:46)
[2024-01-22] MEDS ORDERED: LOSA-382 PO (13:47)
[2024-01-22 16:25] VITALS: BP 127/54; PULSE 64; RESP 18; TEMP 98.1; O2SAT 98
[2024-01-22 20:15] VITALS: BP 133/61; PULSE 62; RESP 18; TEMP 97.8; O2SAT 97
[2024-01-23] VITALS (8 sets, daily range): BP systolic 107–137; BP diastolic 52–64; PULSE 65–77; RESP 16–18; TEMP 97.9–98.8; O2SAT 96–100
[2024-01-23] MEDS: LOSARTAN POTASSIUM 50 MG TABLET PO SCH (08:18)
[2024-01-24 05:27] VITALS: BP 118/51; PULSE 72; RESP 18; TEMP 98.3; O2SAT 96
[2024-01-24 09:13] VITALS: BP 122/63; PULSE 74; RESP 19; TEMP 98; O2SAT 97
[2024-01-24 11:34] VITALS: BP 127/59; PULSE 69; RESP 18; TEMP 98.1; O2SAT 100
== END 2024-01-24 15:25 | disposition home health service (06) | DRG 280 ==
LOC: EMS 20:16 → EDH 22:49 → 5S 01-20 08:00
PROVIDERS: ADMIT Internal Medicine; ATTEND Internal Medicine
DX: I13.0 Hypertensive heart and chronic kidney disease with heart failure and stage 1 through stage 4 chronic kidney disease, or unspecified chronic kidney disease (principal); I50.43 Acute on chronic combined systolic (congestive) and diastolic (congestive) heart failure; I21.A1 Myocardial infarction type 2; N17.0 Acute kidney failure with tubular necrosis; I16.1 Hypertensive emergency; N18.4 Chronic kidney disease, stage 4 (severe); G90.8 Other disorders of autonomic nervous system; I48.0 Paroxysmal atrial fibrillation; E87.6 Hypokalemia; D63.1 Anemia in chronic kidney disease; E11.22 Type 2 diabetes mellitus with diabetic chronic kidney disease; I70.1 Atherosclerosis of renal artery; I07.1 Rheumatic tricuspid insufficiency; F41.9 Anxiety disorder, unspecified; E78.5 Hyperlipidemia, unspecified; E89.0 Postprocedural hypothyroidism; Z91.199 Patient's noncompliance with other medical treatment and regimen due to unspecified reason; Z79.899 Other long term (current) drug therapy
CPT/HCPCS: 70450; 71045; 72125; 73502; 76770; 80048; 80053; 81001; 81002; 82271; 82550; 83540; 83550; 83605; 83735; 83880; 84484; 85025; 85045; 85610; 85730; 93005; 93306; 97163; 97165; 97530; 97535; 99285; G0378; J0360; J1644; J1940; J7050; 36415-L1; 36415-TC

== ENCOUNTER 2024-02-01 11:28 | Inpatient (IN) | payer MEDICARE, MEDICAID ==
[~2024-02-01] VITALS: Ht 160 cm; Wt 68.0 kg
[~2024-02-01 11:28] MED LIST changes: +HYDR25TA84 PO; -HYDR50TA37 PO; -MINO2.5 PO
[2024-02-01] MEDS ORDERED: ACET250T31 PO (11:48)
[2024-02-01 11:59] LABS: BASOPHILS % (AUTO) 0.6 % (0.0-2.0); EOSINOPHILS % (AUTO) 1.9 % (1.0-6.0); HEMATOCRIT 34.8 % (36-46); HEMOGLOBIN 11.3 g/dL (12.0-16.0); LYMPHOCYTES # (AUTO) 1.4 K/uL (1.0-4.8); LYMPHOCYTES % (AUTO) 19.6 % (22.0-44.0); MEAN CORPUSCULAR HEMOGLOBIN 31.2 pg (26.0-34.0); MEAN CORPUSCULAR HGB CONC 32.5 G/dL (31.0-37.0); MEAN CORPUSCULAR VOLUME 96 fL (80-100); MONOCYTES # (AUTO) 0.5 K/uL (0.1-1.0); MONOCYTES % (AUTO) 7.6 % (2.0-9.0); NEUTROPHILS # (AUTO) 4.9 K/uL (1.8-7.7); NEUTROPHILS % (AUTO) 70.3 % (40.0-70.0); PLATELET COUNT (AUTO) 287 K/uL (150-450); RED BLOOD CELL COUNT(AUTO) 3.62 MIL/uL (4.00-5.20); RED CELL DISTRIBUTION WIDTH 15.7 % (11.5-14.5)
[2024-02-01 12:09] LABS: CALCIUM, TOTAL 8.5 mg/dL (8.8-10.5); CREATININE 2.7 mg/dL (0.60-1.30); POTASSIUM 3.7 mmol/L (3.5-5.1)
[2024-02-01 12:12] LABS: PROTHROMBIN TIME 10.2 SEC (9.4-11.6)
[2024-02-01 12:15] LABS: ALBUMIN 3.7 g/dL (3.4-5.0); BILIRUBIN,TOTAL 0.7 mg/dL (0.1-1.0); TOTAL PROTEIN, SERUM 7.6 g/dL (6.4-8.2)
[2024-02-01 12:24] LABS: TROPONIN I-HIGH SENSITIVITY 114 ng/L (<51)
[2024-02-01] MEDS ORDERED: HYDROCODONE/ACETAMINOPHEN 5-325 MG TABLET PO PRN (14:30)
[2024-02-01] MEDS ORDERED: MAGNESIUM HYDROXIDE SUSPENSION 30 ML UDCUP PO PRN (14:30)
[2024-02-01] MEDS ORDERED: ONDANSETRON HCL 4 MG/2 ML VIAL IVP PRN (14:30)
[2024-02-01] MEDS ORDERED: ACETAMINOPHEN 325 MG TABLET PO PRN (14:30)
[2024-02-01] MEDS ORDERED: BISACODYL 10 MG RECTAL RECTAL SUPPOSITORY PR PRN (14:30)
[2024-02-01] MEDS ORDERED: ZOLPIDEM TARTRATE 5 MG TABLET PO PRN (14:30)
[2024-02-01] MEDS ORDERED: CLON0.1T2 PO (14:35)
[2024-02-01] MEDS ORDERED: ESCI-8 PO (14:35)
[2024-02-01] MEDS ORDERED: NETA2.5D3 OU (14:35)
[2024-02-01] MEDS ORDERED: GLIP5TAB15 PO (14:35)
[2024-02-01] MEDS ORDERED: LEVO125T95 PO (14:35)
[2024-02-01] MEDS ORDERED: HYDR50TA36 PO (14:35)
[2024-02-01] MEDS: FUROSEMIDE 20 MG TABLET PO SCH (14:45)
[2024-02-01] MEDS: AmLODIPine BESYLATE 10 MG TABLET PO SCH (14:46)
[2024-02-01 16:23] VITALS: BP 170/83; PULSE 62; RESP 19; TEMP 98; O2SAT 100
[2024-02-01] MEDS: HYDROCODONE/ACETAMINOPHEN 5-325 MG TABLET PO PRN (16:38)
[2024-02-01] MEDS: HydrALAZINE HCL 20 MG/ML VIAL IVP PRN (16:39)
[2024-02-01 17:01] VITALS: BP 148/72; PULSE 65
[2024-02-01] MEDS: MORPHINE SULFATE 2 MG/ML SYRINGE IVP PRN (17:13)
[2024-02-01 20:00] VITALS: BP 143/69; PULSE 63; RESP 19; TEMP 98.1; O2SAT 97
[2024-02-01] MEDS: CARVEDILOL 3.125 MG TABLET PO SCH (21:02)
[2024-02-01] MEDS: APIXABAN 2.5 MG TABLET PO SCH (21:02)
[2024-02-01] MEDS: DOCUSATE SODIUM 100 MG CAPSULE PO SCH (21:02)
[2024-02-02] VITALS (7 sets, daily range): BP systolic 141–168; BP diastolic 58–89; PULSE 60–69; RESP 16–19; TEMP 97.9–98.3; O2SAT 98–100
[2024-02-02 06:17] LABS: BASOPHILS % (AUTO) 1.1 % (0.0-2.0); EOSINOPHILS % (AUTO) 3.3 % (1.0-6.0); HEMATOCRIT 31.2 % (36-46); HEMOGLOBIN 10.1 g/dL (12.0-16.0); LYMPHOCYTES # (AUTO) 1.4 K/uL (1.0-4.8); LYMPHOCYTES % (AUTO) 25.3 % (22.0-44.0); MEAN CORPUSCULAR HEMOGLOBIN 31.5 pg (26.0-34.0); MEAN CORPUSCULAR HGB CONC 32.3 G/dL (31.0-37.0); MEAN CORPUSCULAR VOLUME 98 fL (80-100); MONOCYTES # (AUTO) 0.6 K/uL (0.1-1.0); MONOCYTES % (AUTO) 10.4 % (2.0-9.0); NEUTROPHILS # (AUTO) 3.3 K/uL (1.8-7.7); NEUTROPHILS % (AUTO) 59.9 % (40.0-70.0); PLATELET COUNT (AUTO) 254 K/uL (150-450); RED BLOOD CELL COUNT(AUTO) 3.19 MIL/uL (4.00-5.20); RED CELL DISTRIBUTION WIDTH 15.5 % (11.5-14.5); WHITE BLOOD COUNT (AUTO) 5.5 K/uL (4.5-11.0)
[2024-02-02 06:27] LABS: CREATININE 2.29 mg/dL (0.60-1.30); POTASSIUM 3.4 mmol/L (3.5-5.1)
[2024-02-02 06:42] LABS: TROPONIN I-HIGH SENSITIVITY 101 ng/L (<51)
[2024-02-02] MEDS: LOSARTAN POTASSIUM 50 MG TABLET PO SCH (08:23)
[2024-02-02] MEDS: PANTOPRAZOLE SODIUM 40 MG DR TABLET PO SCH (08:23)
[2024-02-02] MEDS: ISOSORBIDE MONONITRATE 60 MG ER TABLET PO SCH (16:49)
[2024-02-02] MEDS: HydrALAZINE HCL 50 MG TABLET PO SCH (16:49)
[2024-02-03 06:21] VITALS: BP 139/69; PULSE 68; RESP 19; TEMP 98; O2SAT 98
[2024-02-03 06:49] LABS: CALCIUM, TOTAL 8.1 mg/dL (8.8-10.5); CREATININE 2.2 mg/dL (0.60-1.30); POTASSIUM 3.4 mmol/L (3.5-5.1)
[2024-02-03 07:40] VITALS: BP 149/71; PULSE 67; RESP 19; TEMP 98.2; O2SAT 99
[2024-02-03] MEDS: HydrALAZINE HCL 50 MG TABLET PO SCH (08:54)
[2024-02-03 09:00] LABS: FREE T4 (FREE THYROXINE) 0.5 ng/dL (0.76-1.46); THYROID STIMULATING HORMONE 18.06 uIU/mL (0.36-3.74)
[2024-02-03 12:12] VITALS: BP 135/68; PULSE 70; RESP 17; TEMP 98.2; O2SAT 98
[2024-02-03 15:29] VITALS: BP 129/70; PULSE 70; RESP 16; TEMP 98.2; O2SAT 99
[2024-02-03 20:10] VITALS: BP 134/63; PULSE 66; RESP 18; TEMP 98.3; O2SAT 98
[2024-02-04 00:15] VITALS: BP 164/81; PULSE 66; RESP 18; TEMP 97.9; O2SAT 97
[2024-02-04 05:02] VITALS: BP 154/63; PULSE 72; RESP 18; TEMP 98.2; O2SAT 97
[2024-02-04 07:36] LABS: BASOPHILS % (AUTO) 0.4 % (0.0-2.0); EOSINOPHILS % (AUTO) 2.6 % (1.0-6.0); HEMATOCRIT 31.2 % (36-46); HEMOGLOBIN 10.1 g/dL (12.0-16.0); LYMPHOCYTES # (AUTO) 1.5 K/uL (1.0-4.8); LYMPHOCYTES % (AUTO) 23.4 % (22.0-44.0); MEAN CORPUSCULAR HEMOGLOBIN 31.2 pg (26.0-34.0); MEAN CORPUSCULAR HGB CONC 32.5 G/dL (31.0-37.0); MEAN CORPUSCULAR VOLUME 96 fL (80-100); MONOCYTES # (AUTO) 0.6 K/uL (0.1-1.0); NEUTROPHILS # (AUTO) 4.1 K/uL (1.8-7.7); NEUTROPHILS % (AUTO) 64.6 % (40.0-70.0); PLATELET COUNT (AUTO) 256 K/uL (150-450); RED BLOOD CELL COUNT(AUTO) 3.25 MIL/uL (4.00-5.20); RED CELL DISTRIBUTION WIDTH 15.9 % (11.5-14.5); WHITE BLOOD COUNT (AUTO) 6.3 K/uL (4.5-11.0)
[2024-02-04 07:58] LABS: CREATININE 2.19 mg/dL (0.60-1.30); POTASSIUM 3.5 mmol/L (3.5-5.1)
[2024-02-04 08:00] VITALS: BP 173/81; PULSE 71; RESP 18; TEMP 97.6; O2SAT 98
[2024-02-04 12:00] VITALS: BP 137/16; PULSE 67; RESP 16; TEMP 98.2; O2SAT 96
[2024-02-04] MEDS ORDERED: ISOS60TA77 PO (13:10)
[2024-02-04] MEDS ORDERED: HYDR50TA37 PO (13:10)
[2024-02-04] MEDS ORDERED: LEVO150 PO (13:10)
[2024-02-04] MEDS ORDERED: LOSA-382 PO (13:10)
== END 2024-02-04 14:35 | disposition home or self-care (01) | DRG 291 ==
LOC: EMS 11:28 → EDH 14:32 → 5N 16:15
PROVIDERS: ADMIT Internal Medicine; ATTEND Internal Medicine
DX: I13.0 Hypertensive heart and chronic kidney disease with heart failure and stage 1 through stage 4 chronic kidney disease, or unspecified chronic kidney disease (principal); I50.33 Acute on chronic diastolic (congestive) heart failure; N18.4 Chronic kidney disease, stage 4 (severe); I24.89 Other forms of acute ischemic heart disease; I16.0 Hypertensive urgency; I48.0 Paroxysmal atrial fibrillation; I07.1 Rheumatic tricuspid insufficiency; E11.22 Type 2 diabetes mellitus with diabetic chronic kidney disease; E78.5 Hyperlipidemia, unspecified; E89.0 Postprocedural hypothyroidism; Z79.01 Long term (current) use of anticoagulants; Z79.899 Other long term (current) drug therapy
CPT/HCPCS: 71045; 80048; 80053; 82550; 83880; 84439; 84443; 84484; 85025; 85610; 85730; 93005; 97162; 99285; J0360; J2270; 36415-L1; 36415-TC

== ENCOUNTER 2025-02-27 18:22 | Inpatient (IN) | payer MEDICARE, MEDICAID ==
[~2025-02-27] VITALS: Ht 160 cm; Wt 70.6 kg
[~2025-02-27 18:22] MED LIST changes: +ACET250T31 PO; -EMPA10TA3 PO; +ESCI-8 PO; -ESCI5TAB16 PO; -FURO20 PO; -HYDR25TA84 PO; +HYDR50TA37 PO; +ISOS60TA77 PO; -LEVO137T2 PO; +LEVO150 PO; +NETA2.5D3 OU
[2025-02-27 19:00] LABS: GLUCOMETER DEV NAME(LOC) ERT.7; GLUCOSE,POINT OF CARE 139 MG/DL (70-110)
[2025-02-27] MEDS: GABAPENTIN 300 MG CAPSULE PO ONE (20:19)
[2025-02-27 21:26] LABS: PLATELET COUNT (AUTO) 210 K/uL (150-450); RED BLOOD CELL COUNT(AUTO) 4.04 MIL/uL (4.00-5.20); RED CELL DISTRIBUTION WIDTH 15.9 % (11.5-14.5); WHITE BLOOD COUNT (AUTO) 6.9 K/uL (4.5-11.0)
[2025-02-27 21:37] LABS: CALCIUM, TOTAL 8.5 mg/dL (8.8-10.5); CREATININE 2.46 mg/dL (0.60-1.30); GLOMERULAR FILTR. RATE CALC 19 mL/min (>60); GLUCOSE,RANDOM 103 mg/dL (70-110); SODIUM SERUM 134 mmol/L (136-145); UREA NITROGEN, BLOOD 53 mg/dL (7-18)
[2025-02-27 21:50] LABS: TROPONIN I-HIGH SENSITIVITY 71 ng/L (<51)
[2025-02-27 22:49] LABS: APPEARANCE,URINE HAZY (CLEAR); GLUCOSE, URINE (UA) TRACE mg/dL (NEGATIVE); LEUKOCYTE ESTERASE ,URINE MODERATE (NEGATIVE); NITRATE,URINE NEGATIVE (NEGATIVE); OCCULT BLOOD,URINE NEGATIVE (NEGATIVE); SPECIFIC GRAVITIY, URINE 1.018 (1.003-1.030)
[2025-02-27 22:56] LABS: SULFOSALICYLIC ACID,URINE 2+ (Negative)
[2025-02-27 22:57] LABS: SQUAMOUS EPITHELIAL CELL,UR Few /LPF (None Seen)
[2025-02-28] VITALS (9 sets, daily range): BP systolic 110–180; BP diastolic 62–89; PULSE 66–79; RESP 16–18; TEMP 97.2–98.4; O2SAT 97–100
[2025-02-28 00:12] LABS: LACTIC ACID 0.6 mmol/L (0.4-2.0)
[2025-02-28] MEDS: SODIUM CHLORIDE 0.9% 1,000 ML IV ONE ×3 (00:36→02:34)
[2025-02-28] MEDS: CefTRIAXone 1 GM/DEXTROSE 50 ML IV ONE (00:36)
[2025-02-28] MEDS ORDERED: BISACODYL 10 MG RECTAL RECTAL SUPPOSITORY PR PRN (01:45)
[2025-02-28] MEDS ORDERED: MAGNESIUM HYDROXIDE SUSPENSION 30 ML UDCUP PO PRN (01:45)
[2025-02-28] MEDS ORDERED: ONDANSETRON HCL 4 MG/2 ML VIAL IVP PRN (01:45)
[2025-02-28] MEDS ORDERED: ZOLPIDEM TARTRATE 5 MG TABLET PO PRN (01:45)
[2025-02-28] MEDS ORDERED: MORPHINE SULFATE 4 MG/ML SYRINGE IVP PRN (01:45)
[2025-02-28] MEDS: LEVOTHYROXINE SODIUM 150 MCG TABLET PO SCH (06:53)
[2025-02-28 07:21] LABS: TROPONIN I-HIGH SENSITIVITY 68 ng/L (<51)
[2025-02-28] MEDS: DOCUSATE SODIUM 100 MG CAPSULE PO SCH (09:00)
[2025-02-28] MEDS: APIXABAN 2.5 MG TABLET PO SCH (09:12)
[2025-02-28] MEDS: GABAPENTIN 100 MG CAPSULE PO SCH (09:12)
[2025-02-28] MEDS: ISOSORBIDE MONONITRATE 60 MG ER TABLET PO SCH (09:12)
[2025-02-28] MEDS: PANTOPRAZOLE SODIUM 40 MG DR TABLET PO SCH (09:12)
[2025-02-28] MEDS: DEXTROSE 5%-0.45% SODIUM CHL 1,000 ML IV SCH (09:13)
[2025-02-28 13:03] LABS: PLATELET COUNT (AUTO) 192 K/uL (150-450); RED BLOOD CELL COUNT(AUTO) 3.67 MIL/uL (4.00-5.20); RED CELL DISTRIBUTION WIDTH 16.0 % (11.5-14.5); WHITE BLOOD COUNT (AUTO) 6.4 K/uL (4.5-11.0)
[2025-02-28 13:09] LABS: CALCIUM, TOTAL 8.0 mg/dL (8.8-10.5); CREATININE 2.73 mg/dL (0.60-1.30); GLOMERULAR FILTR. RATE CALC 16 mL/min (>60); GLUCOSE,RANDOM 144 mg/dL (70-110); SODIUM SERUM 135 mmol/L (136-145); UREA NITROGEN, BLOOD 51 mg/dL (7-18)
[2025-02-28 13:19] LABS: TROPONIN I-HIGH SENSITIVITY 64 ng/L (<51)
[2025-02-28] MEDS: ALBUMIN HUMAN 25%-25GM/100ML 100 ML IV SCH (13:35)
[2025-02-28] MEDS: CefTRIAXone 1 GM/DEXTROSE 50 ML IV SCH (17:54)
[2025-02-28] MEDS: ATORVASTATIN CALCIUM 20 MG TABLET PO SCH (21:05)
[2025-03-01 05:04] LABS: UREA NITROGEN,URINE RANDOM 448 mg/dL (350-1000)
[2025-03-01 05:30] VITALS: BP 106/68; PULSE 75; RESP 18; TEMP 98.2; O2SAT 98
[2025-03-01 06:18] LABS: PLATELET COUNT (AUTO) 166 K/uL (150-450); RED BLOOD CELL COUNT(AUTO) 3.20 MIL/uL (4.00-5.20); RED CELL DISTRIBUTION WIDTH 16.1 % (11.5-14.5); WHITE BLOOD COUNT (AUTO) 6.0 K/uL (4.5-11.0)
[2025-03-01 06:23] LABS: CALCIUM, TOTAL 8.3 mg/dL (8.8-10.5); CREATININE 2.54 mg/dL (0.60-1.30); GLOMERULAR FILTR. RATE CALC 18.0 mL/min (>60); GLUCOSE,RANDOM 131.0 mg/dL (70-110); SODIUM SERUM 136.0 mmol/L (136-145); UREA NITROGEN, BLOOD 55.0 mg/dL (7-18)
[2025-03-01 06:40] LABS: PHOSPHORUS 4.7 mg/dL (2.5-4.9)
[2025-03-01] MEDS: POTASSIUM CHLORIDE 20 MEQ ER TABLET PO ONE (09:43)
[2025-03-01] MEDS: POTASSIUM CHLORIDE 10% 40 MEQ/30 ML LIQUID UDCUP PO ONE (10:48)
[2025-03-01 12:00] VITALS: BP 116/64; PULSE 64; RESP 17; TEMP 97.9; O2SAT 97
[2025-03-01 17:39] LABS: PHOSPHORUS 5.2 mg/dL (2.5-4.9)
[2025-03-01 17:46] LABS: CALCIUM, TOTAL 8.1 mg/dL (8.8-10.5); CREATININE 3.0 mg/dL (0.60-1.30); GLOMERULAR FILTR. RATE CALC 15.0 mL/min (>60); GLUCOSE,RANDOM 234.0 mg/dL (70-110); SODIUM SERUM 134.0 mmol/L (136-145); UREA NITROGEN, BLOOD 58.0 mg/dL (7-18)
[2025-03-01 20:00] VITALS: BP 154/67; PULSE 76; RESP 16; TEMP 98.2; O2SAT 97
[2025-03-02] VITALS (8 sets, daily range): BP systolic 123–176; BP diastolic 62–80; PULSE 72–88; RESP 16–20; TEMP 97.7–98.6; O2SAT 96–98
[2025-03-02] MEDS: ACETAMINOPHEN 325 MG TABLET PO PRN (05:07)
[2025-03-02 06:37] LABS: PLATELET COUNT (AUTO) 167 K/uL (150-450); RED BLOOD CELL COUNT(AUTO) 3.15 MIL/uL (4.00-5.20); RED CELL DISTRIBUTION WIDTH 16.4 % (11.5-14.5); WHITE BLOOD COUNT (AUTO) 8.1 K/uL (4.5-11.0)
[2025-03-02 07:11] LABS: ASPARTATE AMINOTRANSFERASE 11.0 U/L (15-37); CALCIUM, TOTAL 8.5 mg/dL (8.8-10.5); CREATININE 2.58 mg/dL (0.60-1.30); GLOMERULAR FILTR. RATE CALC 18.0 mL/min (>60); GLUCOSE,RANDOM 173.0 mg/dL (70-110); PHOSPHORUS 4.2 mg/dL (2.5-4.9); SODIUM SERUM 138.0 mmol/L (136-145); TOTAL PROTEIN, SERUM 7.1 g/dL (6.4-8.2); UREA NITROGEN, BLOOD 54.0 mg/dL (7-18)
[2025-03-02 09:01] LABS: GLUCOMETER DEV NAME(LOC) 5S.1E; GLUCOSE,POINT OF CARE 181 MG/DL (70-110)
[2025-03-03] VITALS (7 sets, daily range): BP systolic 122–188; BP diastolic 74–84; PULSE 72–82; RESP 16–18; TEMP 97.7–98.4; O2SAT 95–99
[2025-03-03 06:59] LABS: PLATELET COUNT (AUTO) 173 K/uL (150-450); RED BLOOD CELL COUNT(AUTO) 3.28 MIL/uL (4.00-5.20); RED CELL DISTRIBUTION WIDTH 16.2 % (11.5-14.5); WHITE BLOOD COUNT (AUTO) 7.1 K/uL (4.5-11.0)
[2025-03-03 07:30] LABS: CALCIUM, TOTAL 8.7 mg/dL (8.8-10.5); CREATININE 2.5 mg/dL (0.60-1.30); GLOMERULAR FILTR. RATE CALC 18.0 mL/min (>60); GLUCOSE,RANDOM 138.0 mg/dL (70-110); SODIUM SERUM 136.0 mmol/L (136-145); UREA NITROGEN, BLOOD 56.0 mg/dL (7-18)
[2025-03-03] MEDS: ISOSORBIDE DINITRATE 10 MG TABLET PO SCH (11:41)
[2025-03-03] MEDS ORDERED: ISOSORBIDE DINITRATE 10 MG TABLET PO SCH (16:00)
[2025-03-03] MEDS: SODIUM BICARBONATE 650 MG TABLET PO SCH (21:15)
[2025-03-04] VITALS (8 sets, daily range): BP systolic 130–170; BP diastolic 65–81; PULSE 75–82; RESP 16–18; TEMP 97.7–98.8; O2SAT 95–100
[2025-03-04 06:44] LABS: PLATELET COUNT (AUTO) 177 K/uL (150-450); RED BLOOD CELL COUNT(AUTO) 3.23 MIL/uL (4.00-5.20); RED CELL DISTRIBUTION WIDTH 16.1 % (11.5-14.5); WHITE BLOOD COUNT (AUTO) 5.4 K/uL (4.5-11.0)
[2025-03-04 06:55] LABS: CALCIUM, TOTAL 8.5 mg/dL (8.8-10.5); CREATININE 2.41 mg/dL (0.60-1.30); GLOMERULAR FILTR. RATE CALC 19.0 mL/min (>60); GLUCOSE,RANDOM 130.0 mg/dL (70-110); SODIUM SERUM 136.0 mmol/L (136-145); UREA NITROGEN, BLOOD 54.0 mg/dL (7-18)
[2025-03-04] MEDS: ISOSORBIDE DINITRATE 10 MG TABLET PO SCH (10:01)
[2025-03-04 13:05] LABS: GLUCOMETER DEV NAME(LOC) 5N.2C; GLUCOSE,POINT OF CARE 214 MG/DL (70-110)
[2025-03-04] MEDS ORDERED: SODIUM CHLORIDE 0.9% 250 ML IV ONE (19:58)
[2025-03-04] MEDS ORDERED: SODIUM CHLORIDE 0.9% 1,000 ML ONE (20:00)
[2025-03-04] MEDS: DEXTROSE 5%-0.45% SODIUM CHL 1,000 ML IV SCH (23:13)
[2025-03-05 03:49] VITALS: BP 163/80; PULSE 76; RESP 17; TEMP 99; O2SAT 97
[2025-03-05 07:09] LABS: PLATELET COUNT (AUTO) 183 K/uL (150-450); RED BLOOD CELL COUNT(AUTO) 2.96 MIL/uL (4.00-5.20); RED CELL DISTRIBUTION WIDTH 15.6 % (11.5-14.5); WHITE BLOOD COUNT (AUTO) 4.5 K/uL (4.5-11.0)
[2025-03-05 07:18] VITALS: BP 167/76; PULSE 80; RESP 18; TEMP 98.9; O2SAT 96
[2025-03-05 07:18] LABS: CALCIUM, TOTAL 8.5 mg/dL (8.8-10.5); CREATININE 2.43 mg/dL (0.60-1.30); GLOMERULAR FILTR. RATE CALC 19.0 mL/min (>60); GLUCOSE,RANDOM 139.0 mg/dL (70-110); SODIUM SERUM 135.0 mmol/L (136-145); UREA NITROGEN, BLOOD 60.0 mg/dL (7-18)
[2025-03-05 12:02] VITALS: BP 150/67; PULSE 84; RESP 18; TEMP 98; O2SAT 97
[2025-03-05] MEDS: EPOETIN ALFA 10,000 UNITS/ML VIAL SQ ONE (14:25)
[2025-03-05 15:49] VITALS: BP 145/65; PULSE 77; RESP 17; TEMP 98.1; O2SAT 96
[2025-03-05 19:51] VITALS: BP 155/72; PULSE 78; RESP 18; TEMP 97.7; O2SAT 96
[2025-03-06] VITALS (15 sets, daily range): BP systolic 126–191; BP diastolic 65–100; PULSE 72–101; RESP 16–20; TEMP 97.4–98.8; O2SAT 94–98
[2025-03-06 06:44] LABS: PLATELET COUNT (AUTO) 193 K/uL (150-450); RED BLOOD CELL COUNT(AUTO) 3.01 MIL/uL (4.00-5.20); RED CELL DISTRIBUTION WIDTH 16.2 % (11.5-14.5); WHITE BLOOD COUNT (AUTO) 4.8 K/uL (4.5-11.0)
[2025-03-06 06:58] LABS: PHOSPHORUS 4.5 mg/dL (2.5-4.9)
[2025-03-06 06:59] LABS: CALCIUM, TOTAL 8.3 mg/dL (8.8-10.5); CREATININE 2.23 mg/dL (0.60-1.30); GLOMERULAR FILTR. RATE CALC 21.0 mL/min (>60); GLUCOSE,RANDOM 138.0 mg/dL (70-110); SODIUM SERUM 137.0 mmol/L (136-145); UREA NITROGEN, BLOOD 62.0 mg/dL (7-18)
[2025-03-06] MEDS ORDERED: LIDOCAINE/PF 1% 30 ML VIAL ONE ×2 (14:27→16:16)
[2025-03-06] MEDS ORDERED: SODIUM BICARBONATE 50 MEQ/50 ML VIAL ONE (14:27)
[2025-03-06] MEDS ORDERED: FentaNYL CITRATE PF 100 MCG/2 ML VIAL ONE (16:12)
[2025-03-06] MEDS ORDERED: MIDAZOLAM HCL 2 MG/2 ML VIAL ONE (16:13)
[2025-03-06] MEDS: FentaNYL CITRATE PF 100 MCG/2 ML VIAL IVP ONE (16:30)
[2025-03-06] MEDS: LIDOCAINE 1% 30 ML/SOD BICARB 8.4% 4 ML SQ ONE (16:31)
[2025-03-06] MEDS: MIDAZOLAM HCL 2 MG/2 ML VIAL IVP ONE (16:31)
[2025-03-06] MEDS: CeFAZolin 1 GM/DEXTROSE 50 ML IV SCH (23:12)
[2025-03-07] VITALS (8 sets, daily range): BP systolic 144–198; BP diastolic 67–90; PULSE 74–98; RESP 18–19; TEMP 98–98.9; O2SAT 96–98
[2025-03-07] MEDS ORDERED: METOPROLOL TARTRATE 25 MG TABLET PO SCH (09:30)
[2025-03-07] MEDS: HYDROCODONE/ACETAMINOPHEN 5-325 MG TABLET PO PRN (11:33)
[2025-03-07] MEDS: APIXABAN 2.5 MG TABLET PO SCH (20:20)
[2025-03-08] VITALS (7 sets, daily range): BP systolic 126–172; BP diastolic 65–74; PULSE 71–83; RESP 16–19; TEMP 97.5–99; O2SAT 95–97
[2025-03-08 06:52] LABS: PLATELET COUNT (AUTO) 170 K/uL (150-450); RED BLOOD CELL COUNT(AUTO) 2.65 MIL/uL (4.00-5.20); RED CELL DISTRIBUTION WIDTH 16.2 % (11.5-14.5); WHITE BLOOD COUNT (AUTO) 5.7 K/uL (4.5-11.0)
[2025-03-08 07:06] LABS: CALCIUM, TOTAL 8.2 mg/dL (8.8-10.5); CREATININE 2.38 mg/dL (0.60-1.30); GLOMERULAR FILTR. RATE CALC 19.0 mL/min (>60); GLUCOSE,RANDOM 139.0 mg/dL (70-110); SODIUM SERUM 139.0 mmol/L (136-145); UREA NITROGEN, BLOOD 56.0 mg/dL (7-18)
[2025-03-08] MEDS ORDERED: SODI650T33 PO (09:59)
[2025-03-08] MEDS ORDERED: GABA-1216 PO (09:59)
[2025-03-08] MEDS ORDERED: CLON0.1T2 PO (09:59)
[2025-03-08] MEDS ORDERED: CARV12 PO (09:59)
== END 2025-03-08 17:50 | disposition home health service (06) | DRG 242 ==
LOC: EMS 18:23 → EDH 02-28 01:37 → 5S 02-28 04:06
PROVIDERS: ADMIT Internal Medicine; ATTEND Internal Medicine
PROC: 0JH606Z Insertion of Pacemaker, Dual Chamber into Chest Subcutaneous Tissue and Fascia, Open Approach (ICD-10-PCS; principal; 2025-03-06)
PROC: 02H63JZ Insertion of Pacemaker Lead into Right Atrium, Percutaneous Approach (ICD-10-PCS; 2025-03-06)
PROC: 02HK3JZ Insertion of Pacemaker Lead into Right Ventricle, Percutaneous Approach (ICD-10-PCS; 2025-03-06)
DX: I49.5 Sick sinus syndrome (principal); I21.A1 Myocardial infarction type 2; N17.0 Acute kidney failure with tubular necrosis; I50.33 Acute on chronic diastolic (congestive) heart failure; I13.0 Hypertensive heart and chronic kidney disease with heart failure and stage 1 through stage 4 chronic kidney disease, or unspecified chronic kidney disease; I48.92 Unspecified atrial flutter; I16.1 Hypertensive emergency; N39.0 Urinary tract infection, site not specified; B02.29 Other postherpetic nervous system involvement; N18.4 Chronic kidney disease, stage 4 (severe); E87.20 Acidosis, unspecified; I07.1 Rheumatic tricuspid insufficiency; S42.032A Displaced fracture of lateral end of left clavicle, initial encounter for closed fracture; E78.5 Hyperlipidemia, unspecified; E11.22 Type 2 diabetes mellitus with diabetic chronic kidney disease; E87.6 Hypokalemia; I48.0 Paroxysmal atrial fibrillation; R80.8 Other proteinuria; N28.9 Disorder of kidney and ureter, unspecified; W19.XXXA Unspecified fall, initial encounter; E89.0 Postprocedural hypothyroidism; R62.7 Adult failure to thrive; Z68.27 Body mass index [BMI] 27.0-27.9, adult; Z79.899 Other long term (current) drug therapy; Z79.01 Long term (current) use of anticoagulants; Y93.89 Activity, other specified; Y92.89 Other specified places as the place of occurrence of the external cause; Y99.8 Other external cause status; F12.90 Cannabis use, unspecified, uncomplicated
CPT/HCPCS: 33208; 71045; 71046; 71250; 76000; 76770; 80048; 80053; 81001; 81002; 82570; 82962; 83605; 83735; 83880; 84100; 84300; 84443; 84484; 84540; 85025; 87086; 93005; 93306; 97110; 97116; 97162; 97167; 97530; 97535; 99285; J0360; J0690; J0696; J0885; J1200; J2250; J3010; J3490; J7030; J7050; P9046; 36415-L1; 36415-TC

== ENCOUNTER 2025-04-10 10:44 | Inpatient (IN) | payer MEDICARE, MEDICAID ==
[~2025-04-10] VITALS: Ht 152.4 cm; Wt 67.6 kg
[~2025-04-10 10:44] MED LIST changes: -ACET250T31 PO; +CARV12 PO; -CARV3 PO; +CLON0.1T2 PO; +GABA-1216 PO; -ISOS60TA77 PO; -LOSA-382 PO; +SODI650T33 PO
[2025-04-10 11:31] LABS: PLATELET COUNT (AUTO) 135 K/uL (150-450); RED BLOOD CELL COUNT(AUTO) 3.31 MIL/uL (4.00-5.20); RED CELL DISTRIBUTION WIDTH 17.8 % (11.5-14.5); WHITE BLOOD COUNT (AUTO) 4.5 K/uL (4.5-11.0)
[2025-04-10 11:36] LABS: CALCIUM, TOTAL 7.5 mg/dL (8.8-10.5); CREATININE 3.65 mg/dL (0.60-1.30); GLOMERULAR FILTR. RATE CALC 12 mL/min (>60); GLUCOSE,RANDOM 153 mg/dL (70-110); SODIUM SERUM 136 mmol/L (136-145)
[2025-04-10 11:39] LABS: UREA NITROGEN, BLOOD 102 mg/dL (7-18)
[2025-04-10 11:45] LABS: TROPONIN I-HIGH SENSITIVITY 199 ng/L (<51)
[2025-04-10] MEDS: FUROSEMIDE 40 MG/4 ML VIAL IVP ONE (12:24)
[2025-04-10] MEDS: NITROGLYCERIN 2% (1 GM=INCH) OINTMENT PACKET TP ONE (12:24)
[2025-04-10] MEDS ORDERED: HYDROCODONE/ACETAMINOPHEN 5-325 MG TABLET PO PRN (14:45)
[2025-04-10] MEDS ORDERED: BISACODYL 10 MG RECTAL RECTAL SUPPOSITORY PR PRN (14:45)
[2025-04-10] MEDS ORDERED: MAGNESIUM HYDROXIDE SUSPENSION 30 ML UDCUP PO PRN (14:45)
[2025-04-10] MEDS ORDERED: MORPHINE SULFATE 4 MG/ML SYRINGE IVP PRN (14:45)
[2025-04-10] MEDS ORDERED: ONDANSETRON HCL 4 MG/2 ML VIAL IVP PRN (14:45)
[2025-04-10] MEDS ORDERED: ACETAMINOPHEN 325 MG TABLET PO PRN (14:45)
[2025-04-10 17:30] VITALS: BP 124/91; PULSE 96; RESP 20; TEMP 98.6; O2SAT 99
[2025-04-10] MEDS: CHOLECALCIFEROL (VIT D3) 5,000 [125 MCG] UNITS CAPSULE PO SCH (18:33)
[2025-04-10 19:54] VITALS: BP 132/85; PULSE 98; RESP 17; TEMP 97.3; O2SAT 99
[2025-04-10 20:10] LABS: APPEARANCE,URINE CLEAR (CLEAR); GLUCOSE, URINE (UA) NEGATIVE (NEGATIVE); LEUKOCYTE ESTERASE ,URINE NEGATIVE (NEGATIVE); NITRATE,URINE NEGATIVE (NEGATIVE); OCCULT BLOOD,URINE NEGATIVE (NEGATIVE); SPECIFIC GRAVITIY, URINE 1.010 (1.003-1.030)
[2025-04-10] MEDS: BUMETANIDE 0.25 MG/ML 4 ML VIAL IVP SCH (20:36)
[2025-04-10] MEDS: SODIUM BICARBONATE 650 MG TABLET PO SCH (20:36)
[2025-04-10] MEDS: SACUBITRIL/VALSARTAN 49-51 MG TABLET PO SCH (20:36)
[2025-04-10] MEDS: ATORVASTATIN CALCIUM 20 MG TABLET PO SCH (20:36)
[2025-04-10] MEDS: APIXABAN 2.5 MG TABLET PO SCH (20:36)
[2025-04-10] MEDS: DOCUSATE SODIUM 100 MG CAPSULE PO SCH (21:00)
[2025-04-10] MEDS ORDERED: FUROSEMIDE 20 MG/2 ML VIAL IVP SCH (21:00)
[2025-04-10 23:50] VITALS: BP 127/88; PULSE 95; RESP 17; TEMP 97.5; O2SAT 98
[2025-04-11 03:37] VITALS: BP 118/76; PULSE 118; RESP 17; TEMP 97.6; O2SAT 97
[2025-04-11] MEDS: LEVOTHYROXINE SODIUM 75 MCG TABLET PO SCH (05:54)
[2025-04-11 06:11] LABS: PLATELET COUNT (AUTO) 135 K/uL (150-450); RED BLOOD CELL COUNT(AUTO) 3.20 MIL/uL (4.00-5.20); RED CELL DISTRIBUTION WIDTH 17.9 % (11.5-14.5); WHITE BLOOD COUNT (AUTO) 4.1 K/uL (4.5-11.0)
[2025-04-11 06:30] LABS: PHOSPHORUS 5.1 mg/dL (2.5-4.9)
[2025-04-11 06:35] LABS: CALCIUM, TOTAL 7.3 mg/dL (8.8-10.5); CREATININE 3.45 mg/dL (0.60-1.30); GLOMERULAR FILTR. RATE CALC 13.0 mL/min (>60); GLUCOSE,RANDOM 129.0 mg/dL (70-110); SODIUM SERUM 139.0 mmol/L (136-145); UREA NITROGEN, BLOOD 95.0 mg/dL (7-18)
[2025-04-11 08:13] VITALS: BP 126/73; PULSE 94; RESP 18; TEMP 97.9; O2SAT 95
[2025-04-11] MEDS: PANTOPRAZOLE SODIUM 40 MG DR TABLET PO SCH (08:29)
[2025-04-11] MEDS: EPOETIN ALFA 10,000 UNITS/ML VIAL SQ SCH (09:45)
[2025-04-11] MEDS ORDERED: DEXTROSE 50%-WATER 25 GM/50 ML SYRINGE IVP PRN (11:30)
[2025-04-11 11:45] VITALS: BP 116/68; PULSE 82; RESP 18; TEMP 97.5; O2SAT 96
[2025-04-11] MEDS: INSULIN LISPRO 100 UNITS/ML SQ PRN (12:26)
[2025-04-11 12:31] LABS: GLUCOMETER DEV NAME(LOC) 5S.2E; GLUCOSE,POINT OF CARE 144 MG/DL (70-110)
[2025-04-11 14:07] LABS: ALBUMIN/CREATININE RATIO 451.0 mg/g creat (0-29); CREATININE, URINE (mALB) 34.4 mg/dL (Not Estab.)
[2025-04-11 15:34] VITALS: BP 130/78; PULSE 94; RESP 17; TEMP 97.7; O2SAT 96
[2025-04-11 19:15] LABS: GLUCOMETER DEV NAME(LOC) 5N.1D; GLUCOSE,POINT OF CARE 120 MG/DL (70-110)
[2025-04-11 19:55] VITALS: BP 105/66; PULSE 86; RESP 18; TEMP 97.5; O2SAT 97
[2025-04-11 23:47] VITALS: BP 124/62; PULSE 71; RESP 18; TEMP 97.7; O2SAT 98
[2025-04-12] MEDS: ZOLPIDEM TARTRATE 5 MG TABLET PO PRN (00:07)
[2025-04-12 04:26] VITALS: BP 126/70; PULSE 76; RESP 17; TEMP 97.9; O2SAT 97
[2025-04-12 06:16] LABS: GLUCOMETER DEV NAME(LOC) 5S.1E; GLUCOSE,POINT OF CARE 102 MG/DL (70-110)
[2025-04-12 06:16] LABS: GLUCOMETER DEV NAME(LOC) 5S.1E; GLUCOSE,POINT OF CARE 118 MG/DL (70-110)
[2025-04-12 06:33] LABS: PLATELET COUNT (AUTO) 145 K/uL (150-450); RED BLOOD CELL COUNT(AUTO) 3.23 MIL/uL (4.00-5.20); RED CELL DISTRIBUTION WIDTH 17.7 % (11.5-14.5); WHITE BLOOD COUNT (AUTO) 4.6 K/uL (4.5-11.0)
[2025-04-12 07:52] LABS: CALCIUM, TOTAL 7.5 mg/dL (8.8-10.5); CREATININE 3.39 mg/dL (0.60-1.30); GLOMERULAR FILTR. RATE CALC 13 mL/min (>60); GLUCOSE,RANDOM 112 mg/dL (70-110); SODIUM SERUM 140 mmol/L (136-145); UREA NITROGEN, BLOOD 89 mg/dL (7-18)
[2025-04-12 08:01] LABS: TROPONIN I-HIGH SENSITIVITY 225 ng/L (<51)
[2025-04-12 08:03] LABS: PHOSPHORUS 4.8 mg/dL (2.5-4.9)
[2025-04-12 08:26] VITALS: BP 145/78; PULSE 70; RESP 16; TEMP 98.2; O2SAT 97
[2025-04-12] MEDS: POTASSIUM CHL 10 MEQ/WATER 50 ML IV SCH (11:25)
[2025-04-12 12:03] VITALS: BP 142/72; PULSE 68; RESP 18; TEMP 98.2; O2SAT 97
[2025-04-12 16:03] VITALS: BP 127/57; PULSE 69; RESP 17; TEMP 97.3; O2SAT 98
[2025-04-12 18:01] LABS: GLUCOMETER DEV NAME(LOC) 5N.1D; GLUCOSE,POINT OF CARE 176 MG/DL (70-110)
[2025-04-12 19:40] VITALS: BP 143/82; PULSE 71; RESP 18; TEMP 97.9; O2SAT 97
[2025-04-12 22:20] LABS: GLUCOMETER DEV NAME(LOC) 5N.1D; GLUCOSE,POINT OF CARE 124 MG/DL (70-110)
[2025-04-13 00:18] VITALS: BP 128/72; PULSE 69; RESP 16; TEMP 98.4; O2SAT 97
[2025-04-13 03:58] VITALS: BP 151/78; PULSE 78; RESP 18; TEMP 97.9; O2SAT 96
[2025-04-13] MEDS: LEVOTHYROXINE SODIUM 125 MCG TABLET PO SCH (06:20)
[2025-04-13 06:41] LABS: PLATELET COUNT (AUTO) 149 K/uL (150-450); RED BLOOD CELL COUNT(AUTO) 3.25 MIL/uL (4.00-5.20); RED CELL DISTRIBUTION WIDTH 17.5 % (11.5-14.5); WHITE BLOOD COUNT (AUTO) 4.4 K/uL (4.5-11.0)
[2025-04-13 06:46] LABS: GLUCOMETER DEV NAME(LOC) 5S.1E; GLUCOSE,POINT OF CARE 129 MG/DL (70-110)
[2025-04-13 06:55] LABS: PHOSPHORUS 4.4 mg/dL (2.5-4.9)
[2025-04-13 06:57] LABS: CALCIUM, TOTAL 7.7 mg/dL (8.8-10.5); CREATININE 3.62 mg/dL (0.60-1.30); GLOMERULAR FILTR. RATE CALC 12.0 mL/min (>60); GLUCOSE,RANDOM 128.0 mg/dL (70-110); SODIUM SERUM 142.0 mmol/L (136-145); UREA NITROGEN, BLOOD 87.0 mg/dL (7-18)
[2025-04-13 08:17] VITALS: BP 171/89; PULSE 78; RESP 18; TEMP 98; O2SAT 98
[2025-04-13] MEDS ORDERED: BUME1TAB50 PO (10:53)
[2025-04-13] MEDS ORDERED: LEVO125 PO (10:54)
[2025-04-13 11:32] VITALS: BP 145/66; PULSE 72; RESP 17; TEMP 98.1; O2SAT 97
[2025-04-13 11:50] LABS: GLUCOMETER DEV NAME(LOC) 5N.1D; GLUCOSE,POINT OF CARE 165 MG/DL (70-110)
== END 2025-04-13 14:25 | disposition home or self-care (01) | DRG 291 ==
LOC: EMS 10:45 → EDH 13:09 → 5S 15:50
PROVIDERS: ADMIT Internal Medicine; ATTEND Internal Medicine
DX: I13.0 Hypertensive heart and chronic kidney disease with heart failure and stage 1 through stage 4 chronic kidney disease, or unspecified chronic kidney disease (principal); I50.43 Acute on chronic combined systolic (congestive) and diastolic (congestive) heart failure; E87.20 Acidosis, unspecified; N18.4 Chronic kidney disease, stage 4 (severe); D63.1 Anemia in chronic kidney disease; N17.9 Acute kidney failure, unspecified; Z79.01 Long term (current) use of anticoagulants; E11.22 Type 2 diabetes mellitus with diabetic chronic kidney disease; E05.90 Thyrotoxicosis, unspecified without thyrotoxic crisis or storm; E89.0 Postprocedural hypothyroidism; I36.1 Nonrheumatic tricuspid (valve) insufficiency; I48.20 Chronic atrial fibrillation, unspecified; E78.5 Hyperlipidemia, unspecified; I48.0 Paroxysmal atrial fibrillation; I25.10 Atherosclerotic heart disease of native coronary artery without angina pectoris; Z79.899 Other long term (current) drug therapy; Z95.0 Presence of cardiac pacemaker
CPT/HCPCS: 71045; 80048; 81003; 82040; 82043; 82570; 82962; 83735; 83880; 84100; 84133; 84300; 84443; 84484; 85025; 85610; 85730; 93005; 96374; 97167; 97535; 99285; G0378; J0885; J1938; J3480; J3490; 36415-L1; 36415-TC